=== PATIENT | male | born 1990 | race Caucasian/White ===

== ENCOUNTER 2023-05-04 00:32 | Emergency (ER) | payer BC, SELFPAY ==
[2023-05-04 00:38] VITALS: BP 141/84; PULSE 106; RESP 18; TEMP 36.8; O2SAT 100; BMI 27.6
--- NOTE | 2023-05-04 01:02 | XR_ITS ---
The [address] [address] Patient Name: SARAH HINDS MRN: [id number] date: 1990 Sex: M Assigned Patient Location: ER Current Patient Location: Accession/Order Number: [id number] Exam Date: 05/04/2023 01:25 Report Date: 05/04/2023 02:24 At the request of: JEANNE DAVEY Procedure: XR abdomen min 2V EXAM: XR abdomen min 2V HISTORY: right sided abdominal pain . Right lower quadrant pain for several days, worsening today. COMPARISON: None. TECHNIQUE: AP supine and upright abdominal x-rays. FINDINGS: The bowel gas pattern appears nonobstructive. No bowel wall thickening, pneumatosis or free air is seen. There is a normal volume of stool in the proximal half of the colon. No urinary tract calculi are seen. Cholecystectomy clips are noted. The imaged lung bases are clear. XR/XR abdomen min 2V IMPRESSION: No acute abdominal findings. Electronically authenticated by: SHEILA PRIEST Date: 05/04/2023 02:24
--- NOTE | 2023-05-04 01:03 | ED_ITS ---
HPI - Abdominal Pain General Chief Complaint: Abdominal Pain Stated Complaint: STOMACH PAIN Time Seen by Provider: 05/04/23 00:43 History of Present Illness HPI narrative: several days of right sided abdominal pain associated with chronic symptoms such as diarrhea and nausea. He has been able to keep down food and fluids but is eating and drinking less. He has dry heaves . No urinary symptoms. No flank pain. He has Lupus which means that I have pain all f the time . He said that the chronic diarrhea and right sided abdominal pain is associated with the lupus. Related Data Home Medications Medication Instructions Recorded Confirmed No Known Home Medications 05/04/23 05/04/23 Previous Rx's Medication Instructions Recorded hyoscyamine sulfate 0.125 mg 0.125 mg PO Q6H PRN abdominal pain 05/04/23 sublingual tablet (Levsin/SL) #20 tabs ondansetron 4 mg disintegrating 4 mg PO Q6H PRN nausea and 05/04/23 tablet vomiting #20 tabs Allergies Allergy/AdvReac Type Severity Reaction Status Date / Time amoxicillin Allergy Severe Verified 05/04/23 00:42 codeine Allergy Severe Verified 05/04/23 00:42 morphine Allergy Severe Verified 05/04/23 00:42 Penicillins Allergy Severe Verified 05/04/23 00:42 latex Allergy Verified 05/04/23 00:42 PFSH PFSH Social History Smoking status: Never smoker Exam Narrative Exam Narrative: Nurses notes and vital signs reviewed and patient is not hypoxic. afebrile General: Well-appearing and in no apparent distress. Skin: Warm, dry, no pallor noted. No rash to the abdomen. Head: Normocephalic, atraumatic. Eye: Pupils are equal, round and EOMI. No scleral icterus. Ears, Nose, Mouth, and Throat: Oral mucosa is dry Cardiovascular: Tachycardia. Respiratory: No accessory muscle use or respiratory distress. Lungs are clear to auscultation, no wheezing, rales or rhonchi Back: No CVA tenderness Musculoskeletal: normal ROM, no calf or popliteal tenderness, no lower ext remity edema/swelling GI: Abdomen is soft, non-distended. Normal bowel sounds. No masses appreciated. Suprapubic and mid right abdominal tenderness to palpation. Negative Rovsing's. No rebound, guarding, or rigidity noted. Neurological: A&O x4. No cranial nerve dysfunction observed. No truncal ataxia. Moves all extremities. Sensation intact. Psychiatric: Cooperative and interactive. Normal mood and affect. Constitutional Vital Signs, click to edit/add: Last Vital Signs Temp 98.3 F 05/04/23 00:38 Pulse 106 H 05/04/23 00:38 Resp 18 05/04/23 00:38 BP 141/84 05/04/23 00:38 Pulse Ox 100 05/04/23 00:38 O2 Del Method Room Air 05/04/23 00:38 Course Vital Signs Vital signs: Vital Signs Temperature 98.3 F 05/04/23 00:38 Pulse Rate 106 H 05/04/23 00:38 Respiratory Rate 18 05/04/23 00:38 Blood Pressure 141/84 05/04/23 00:38 Pulse Oximetry 100 05/04/23 00:38 Oxygen Delivery Method Room Air 05/04/23 00:38 Temperature 98.3 F 05/04/23 00:38 Pulse Rate 106 H 05/04/23 00:38 Respiratory Rate 18 05/04/23 00:38 Blood Pressure 141/84 05/04/23 00:38 Pulse Oximetry 100 05/04/23 00:38 Oxygen Delivery Method Room Air 05/04/23 00:38 MDM - Abdominal Pain MDM Narrative Medical decision making narrative: peripheral IV established and blood drawn and sent for testing. Patient also was sent for x-rays of the abdomen. Nonspecific bowel gas pattern was noted on x-rays. No obstruction. CBC normal. CMP Patient received normal saline IV fluid, IV Toradol and IV Zofran along with IV Phenergan. He felt better after ED treatment and was discharged home with prescription for Zofran and Levsin. Lab Data Attestation: I reviewed the patient's lab results. Labs: Lab Results 05/04/23 Range/Units 00:50 WBC 10.3 (4.0-11.0) 10^3/uL RBC 5.25 (4.70-6.10) 10^6/uL Hgb 15.3 (14.0-18.0) g/dL Hct 45.3 (42.0-54.0) % MCV 86.3 (80.0-94.0) fL MCH 29.1 (25.9-34.0) pg MCHC 33.8 (29.9-35.2) g/dL RDW 12.4 (11.0-15.0) % Plt Count 286 (150-450) 10^3/uL MPV 10.2 (9.5-13.5) fL Neut % (Auto) 51.0 (43.0-75.0) % Lymph % (Auto) 36.0 (20.5-60.0) % [place] % (Auto) 9.6 (1.7-12.0) % Eos % (Auto) 2.3 (0.9-7.0) % Baso % (Auto) 0.7 (0.2-2.0) % Neut # (Auto) 5.3 (1.4-6.5) 10^3/uL Lymph # (Auto) 3.7 (1.2-3.8) 10^3/uL [place] # (Auto) 1.0 H (0.3-0.8) 10^3/uL Eos # (Auto) 0.2 (0.0-0.7) 10^3/uL Baso # (Auto) 0.1 (0.0-0.1) 10^3/uL Abs Immat Gran (auto) 0.04 H (0.00-0.03) 10^3/uL Imm/Tot Granulo (auto) 0.4 (0.0-0.5) % Sodium 142 (136-145) mmol/L Potassium 3.4 L (3.5-5.1) mmol/L Chloride 102 (98-107) mmol/L Carbon Dioxide 28.8 (21.0-32.0) mmol/L Anion Gap 14.6 BUN 10.0 (7.0-18.0) mg/dL Creatinine 1.08 (0.70-1.30) mg/dL Est GFR ( Amer) >60 (>=60) Est GFR (Non-Af Amer) >60 (>=60) BUN/Creatinine Ratio 9.3 Glucose 99 (74-106) mg/dL Calcium 8.5 (8.5-10.1) mg/dL Total Bilirubin 0.6 (0.2-1.0) mg/dL AST 22 (15-37) U/L ALT 47 (16-63) U/L Alkaline Phosphatase 100 (46-116) U/L Total Protein 7.5 (6.4-8.2) g/dL Albumin 3.9 (3.4-5.0) g/dL Globulin 3.6 g/dL Albumin/Globulin Ratio 1.1 Lipase 115.0 (73.0-393.0) U/L Imaging Data Abdominal x-ray: Radiologist's impression: Patient Name: SARAH HINDS MRN: [id number] date: 1990 Sex: M Assigned Patient Location: ER Current Patient Location: Accession/Order Number: [id number] Exam Date: 05/04/2023 01:25 Report Date: 05/04/2023 02:24 At the request of: JEANNE DAVEY Procedure: XR abdomen min 2V EXAM: XR abdomen min 2V HISTORY: right sided abdominal pain . Right lower quadrant pain for several days, worsening today. COMPARISON: None. TECHNIQUE: AP supine and upright abdominal x-rays. FINDINGS: The bowel gas pattern appears nonobstructive. No bowel wall thickening, pneumatosis or free air is seen. There is a normal volume of stool in the proximal half of the colon. No urinary tract calculi are seen. Cholecystectomy clips are noted. The imaged lung bases are clear. IMPRESSION: No acute abdominal findings. Electronically authenticated by: SHEILA PRIEST Date: 05/04/2023 02:24 Discharge Plan Discharge Chief Complaint: Abdominal Pain Clinical Impression: Enteritis, Abdominal pain Patient Disposition: Home, Self-Care Time of Disposition Decision: 01:49 Prescriptions / Home Meds: New ondansetron 4 mg tablet,disintegrating 4 mg PO Q6H PRN (Reason: nausea and vomiting) Qty: 20 0RF hyoscyamine sulfate [Levsin/SL] 0.125 mg tablet, sublingual 0.125 mg PO Q6H PRN (Reason: abdominal pain) Qty: 20 0RF No Action No Known Home Medications Instructions: Abdominal Pain (ED), Enteritis (ED) Stand Alone Forms: Portal Instructions Referrals: AARON CHRISTOPHER [Primary Care Provider] - 1 week Discharge Date/Time: 05/04/23 01:58
[2023-05-04] MEDS: PROMETHAZINE HCL 25 MG/ML VIAL IV (01:13)
[2023-05-04] MEDS: KETOROLAC TROMETHAMINE 30 MG/ML VIAL IVP (01:13)
[2023-05-04] MEDS: 0.9 % SODIUM CHLORIDE 1,000 ML 999 ML IV (01:13)
[2023-05-04 01:24] LABS: Basophils Absolute Auto 0.1 10^3/uL (0.0-0.1); Basophils Percent Auto 0.7 % (0.2-2.0); Eosinophils Absolute Auto 0.2 10^3/uL (0.0-0.7); Eosinophils Percent Auto 2.3 % (0.9-7.0); Hematocrit 45.3 % (42.0-54.0); Hemoglobin 15.3 g/dL (14.0-18.0); Immature Granulocytes Abs Auto 0.04 10^3/uL (0.00-0.03); Immature Granulocytes Pct Auto 0.4 % (0.0-0.5); Lymphocytes Absolute Auto 3.7 10^3/uL (1.2-3.8); Mean Corpuscular HGB Conc 33.8 g/dL (29.9-35.2); Mean Corpuscular Hemoglobin 29.1 pg (25.9-34.0); Mean Corpuscular Volume 86.3 fL (80.0-94.0); Mean Platelet Volume 10.2 fL (9.5-13.5); Monocytes Percent Auto 9.6 % (1.7-12.0); Neutrophils Absolute Auto 5.3 10^3/uL (1.4-6.5); Platelet Count 286 10^3/uL (150-450); Red Blood Count 5.25 10^6/uL (4.70-6.10); Red Cell Distribution Width 12.4 % (11.0-15.0); White Blood Count 10.3 10^3/uL (4.0-11.0)
[2023-05-04] MEDS: ONDANSETRON PF 4 MG/2 ML VIAL IV (01:37)
[2023-05-04 01:46] LABS: Alanine Aminotransferase 47 U/L (16-63); Albumin Globulin Ratio 1.1; Albumin Level 3.9 g/dL (3.4-5.0); Alkaline Phosphatase 100 U/L (46-116); Anion Gap 14.6; Aspartate Amino Transferase 22 U/L (15-37); BUN Creatinine Ratio 9.3; Bilirubin Total 0.6 mg/dL (0.2-1.0); Calcium 8.5 mg/dL (8.5-10.1); Carbon Dioxide 28.8 mmol/L (21.0-32.0); Chloride 102 mmol/L (98-107); Estimated GFR (African America >60 (>=60); Estimated GFR (Non-African Ame >60 (>=60); Globulin 3.6 g/dL; Glucose 99 mg/dL (74-106); Potassium 3.4 mmol/L (3.5-5.1); Sodium 142 mmol/L (136-145); Total Protein 7.5 g/dL (6.4-8.2)
== END 2023-05-04 01:58 | disposition home or self-care (01) ==
PROVIDERS: Emergency Provider Emergency Medicine; PCP Family Medicine
DX: K52.9 Noninfective gastroenteritis and colitis, unspecified (principal); R10.9 Unspecified abdominal pain
CPT/HCPCS: 36415; 74019; 80053; 83690; 85025; 96374; 96375; 99284

== ENCOUNTER 2024-04-23 10:38 | Emergency (ER) | payer BC, SELFPAY ==
[2024-04-23 10:45] VITALS: BP 133/91; PULSE 101; TEMP 36.7; O2SAT 95; BMI 31.3
--- NOTE | 2024-04-23 10:55 | ECG_ITS ---
The [facility] Test Date: 2024-04-23 Pat Name: SARAH HINDS Department: Room: - Gender: Male Brand Director: : 1990 Requested By: Fredrick eMi Order Number: [id number] Reading MD: YURI HINDS Measurements Intervals [place] Rate: 86 P: 27 MS: 164 QRS: 22 QRSD: 80 T: 14 QT: 336 QTc: 379 Interpretive Statements 1100 Sinus rhythm 9110 normal ECG Compared to ECG 04/01/2021 11:27:10 No significant changes Electronically Signed On 04-23-2024 19:13:26 EDT by YURI HINDS
--- NOTE | 2024-04-23 10:55 | CT_ITS ---
The [address] [address] Patient Name: SARAH HINDS MRN: [id number] date: 1990 Sex: M Assigned Patient Location: ER Current Patient Location: ER Accession/Order Number: [id number] Exam Date: 04/23/2024 11:18 Report Date: 04/23/2024 12:37 At the request of: BRIDGET CASTRO Procedure: CT abdomen pelvis wo con EXAMINATION: CT abdomen pelvis wo con HISTORY: right flank pain COMPARISON: No relevant comparison available. TECHNIQUE: Axial, Coronal, and Sagittal images were created without IV contrast. Dose reduction techniques were achieved by using automated exposure control and/or adjustment of mA and/or kV according to patient size and/or use of iterative reconstruction technique. FINDINGS: LUNG BASES: No visible pulmonary or pleural disease. LIVER: No enlargement, atrophy, abnormal density, or significant focal lesion. BILIARY: Surgical clips from cholecystectomy PANCREAS: No lesion, fluid collection, ductal dilatation, or atrophy. SPLEEN: No enlargement or focal lesion. ADRENALS: No mass or enlargement. KIDNEYS: No mass, obstruction, or calcification. BOWEL/MESENTERY: No visible mass, obstruction, or bowel wall thickening. Normal appendix AORTA/VASCULAR: No aneurysm or dissection. RETROPERITONEUM: No mass or adenopathy. LYMPH NODES: No adenopathy. URINARY BLADDER: No visible focal wall thickening, lesion, or calculus. PELVIC ORGANS: No visible mass. Pelvic organs appropriate for patient age. ABDOMINAL WALL: No mass or hernia. BONES: No bony lesion or fracture. OTHER: Negative. CT/CT abdomen pelvis wo con IMPRESSION: No obstructive uropathy Electronically authenticated by: CHRISTIAN ELAINE Date: 04/23/2024 12:37
--- NOTE | 2024-04-23 10:56 | ED_ITS ---
HPI - Abdominal Pain General Chief Complaint: Abdominal Pain Stated Complaint: TORSO AND BACK PAIN Time Seen by Provider: 04/23/24 10:54 Source: patient Mode of arrival: walk-in Limitations: no limitations History of Present Illness HPI narrative: The patient is a 33-year-old male is coming to us with a right-sided upper abdominal pain associated with the radiation to the back for the last 7 days almost, mentioned that the pain comes and goes there is no specific reason that we will bring the patient pain. It is associated with nausea no vomiting No fever no chills no change in bowel movement, Related Data Previous Rx's ?Medication ?Instructions ?Recorded hyoscyamine sulfate 0.125 mg 0.125 mg PO Q6H PRN abdominal pain 05/04/23 sublingual tablet (Levsin/SL) #20 tabs ondansetron 4 mg disintegrating 4 mg PO Q6H PRN nausea and 05/04/23 tablet vomiting #20 tabs dicyclomine 20 mg tablet 20 mg PO QID PRN abdominal pain 04/23/24 #10 tabs famotidine 20 mg tablet (Pepcid) 20 mg PO BID #20 tabs 04/23/24 Allergies Allergy/AdvReac Type Severity Reaction Status Date / Time amoxicillin Allergy Severe Anaphylaxis Verified 04/23/24 10:45 codeine Allergy Severe Anaphylaxis Verified 04/23/24 10:45 morphine Allergy Severe Anaphylaxis Verified 04/23/24 10:45 Penicillins Allergy Severe Anaphylaxis Verified 04/23/24 10:45 latex Allergy Hives Verified 04/23/24 10:45 Review of Systems ROS Status of ROS 10 or more systems reviewed and unremark able except as noted in history and below [facility] Social History Smoking status: Never smoker Exam Narrative Exam Narrative: Nurses notes and vital signs reviewed and patient is not hypoxic. General: Well-appearing and in no apparent distress. Skin: Warm, dry, no pallor noted. No rash. Head: Normocephalic, atraumatic. Neck: Supple, non-tender. Eye: Pupils are equal, round and EOMI. No scleral icterus. Ears, Nose, Mouth, and Throat: TM are clear, no nasal mucosal hypertrophy. Oral mucosa is moist, no posterior oropharynx erythema, uvula is mid-line Cardiovascular: Regular Rate and Rhythm without murmur, gallop or rub. Respiratory: No accessory muscle use or respiratory distress. Lungs are clear to auscultation, no wheezing, rales or rhonchi Chest Wall: no tenderness Back: No midline thoracic or lumbar vertebral tenderness. No CVA tenderness Musculoskeletal: normal ROM, no calf or popliteal tenderness, no lower e xtremity edema/swelling GI: Abdomen is soft, non-distended. Normal bowel sounds. No masses appreciated. No tenderness to palpation. No rebound, guarding, or rigidity noted. Neurological: A&O x4. No cranial nerve dysfunction observed. No truncal ataxia. Moves all extremities. Sensation intact. Psychiatric: Cooperative and interactive. Normal mood and affect. Constitutional Vital Signs, click to edit/add: Last Vital Signs Temp 98.1 F 04/23/24 10:45 Pulse 78 04/23/24 12:50 Resp 18 04/23/24 12:50 BP 128/88 04/23/24 12:50 Pulse Ox 100 04/23/24 12:50 O2 Del Method Room Air 04/23/24 10:45 Course Vital Signs Vital signs: Vital Signs Temperature 98.1 F 04/23/24 10:45 Pulse Rate 101 H 04/23/24 10:45 Respiratory Rate 14 04/23/24 10:45 Blood Pressure 133/91 04/23/24 10:45 Pulse Oximetry 95 04/23/24 10:45 Oxygen Delivery Method Room Air 04/23/24 10:45 Temperature 98.1 F 04/23/24 10:45 Pulse Rate 78 04/23/24 12:50 Respiratory Rate 18 04/23/24 12:50 Blood Pressure 128/88 04/23/24 12:50 Pulse Oximetry 100 04/23/24 12:50 Oxygen Delivery Method Room Air 04/23/24 10:45 MDM - Abdominal Pain MDM Narrative Medical decision making narrative: I could not elicit the pain on examination but the patient was pointing to the right upper abdomen: As well as right lower back CBC chemistry showed no acute pathology and the patient CAT scan without contrast showed no acute pathology as well the patient presentation is mostly secondary to gastritis He was treated with Pepcid referred to his primary care as outpatient The patient is to follow up with primary care physician in next 2-3 days or to return to the emergency department should any of the signs or symptoms worsen or new symptoms develop. The patient agrees with the following Diagnosis and Treatment plan and the patient will be discharged home. Lab Data Labs: Lab Results 04/23/24 04/23/24 Range/Units 10:47 11:54 WBC 8.4 (4.0-11.0) 10^3/uL RBC 5.25 (4.70-6.10) 10^6/uL Hgb 15.8 (14.0-18.0) g/dL Hct 45.1 (42.0-54.0) % MCV 85.9 (80.0-94.0) fL MCH 30.1 (25.9-34.0) pg MCHC 35.0 (29.9-35.2) g/dL RDW 12.2 (11.0-15.0) % Plt Count 288 (150-450) 10^3/uL MPV 9.9 (9.5-13.5) fL Neut % (Auto) 42.8 L (43.0-75.0) % Lymph % (Auto) 42.8 (20.5-60.0) % [place] % (Auto) 10.5 (1.7-12.0) % Eos % (Auto) 2.9 (0.9-7.0) % Baso % (Auto) 0.8 (0.2-2.0) % Neut # (Auto) 3.6 (1.4-6.5) 10^3/uL Lymph # (Auto) 3.6 (1.2-3.8) 10^3/uL [place] # (Auto) 0.9 H (0.3-0.8) 10^3/uL Eos # (Auto) 0.2 (0.0-0.7) 10^3/uL Baso # (Auto) 0.1 (0.0-0.1) 10^3/uL Abs Immat Gran (auto) 0.02 (0.00-0.03) 10^3/uL Imm/Tot Granulo (auto) 0.2 (0.0-0.5) % Sodium 138 (136-145) mmol/L Potassium 3.5 (3.5-5.1) mmol/L Chloride 99 (98-107) mmol/L Carbon Dioxide 29.2 (21.0-32.0) mmol/L Anion Gap 13.3 BUN 12.0 (7.0-18.0) mg/dL Creatinine 1.03 (0.70-1.30) mg/dL Est GFR ( Amer) >60 (>=60) Est GFR (Non-Af Amer) >60 (>=60) BUN/Creatinine Ratio 11.7 Glucose 92 (74-106) mg/dL Calcium 9.3 (8.5-10.1) mg/dL Total Bilirubin 0.8 (0.2-1.0) mg/dL AST 27 (15-37) U/L ALT 54 (16-63) U/L Alkaline Phosphatase 95 (46-116) U/L Troponin I High Sens <4.0 L (4.0-76.1) pg/mL Total Protein 7.6 (6.4-8.2) g/dL Albumin 3.9 (3.4-5.0) g/dL Globulin 3.7 g/dL Albumin/Globulin Ratio 1.1 Lipase 39.0 (16.0-77.0) U/L Urine Color Yellow (YELLOW) Urine Clarity Clear (CLEAR) Urine pH 6.0 (5.0-9.0) Ur Specific [place] >=1.030 A (1.005-1.025) Urine Protein Negative (NEG/TRACE) mg/dL Urine Glucose (UA) Negative (NEGATIVE) mg/dL Urine Ketones Negative (NEGATIVE) mg/dL Urine Occult Blood Negative (NEGATIVE) Urine Nitrite Negative (NEGATIVE) Urine Bilirubin Negative (NEGATIVE) Urine Urobilinogen 0.2 (0.2-1.0) EU/dL Ur Leukocyte Esterase Negative (NEGATIVE) Discharge Plan Discharge Stand Alone Forms: Work/School Release, Portal Instructions Chief Complaint: Abdominal Pain Clinical Impression: Gastritis, Abdominal pain Patient Disposition: Home, Self-Care Time of Disposition Decision: 12:50 Condition: Good Prescriptions / Home Meds: New dicyclomine 20 mg tablet 20 mg PO QID PRN (Reason: abdominal pain) Qty: 10 0RF famotidine [Pepcid] 20 mg tablet 20 mg PO BID Qty: 20 0RF No Action ondansetron 4 mg tablet,disintegrating 4 mg PO Q6H PRN (Reason: nausea and vomiting) Qty: 20 0RF hyoscyamine sulfate [Levsin/SL] 0.125 mg tablet, sublingual 0.125 mg PO Q6H PRN (Reason: abdominal pain) Qty: 20 0RF Print Language: [place] Instructions: Soft Diet (ED), Abdominal Pain (ED) Referrals: AARON CHRISTOPHER [Primary Care Provider] - 1 week Discharge Date/Time: 04/23/24 12:59
[2024-04-23 11:06] LABS: Basophils Absolute Auto 0.1 10^3/uL (0.0-0.1); Basophils Percent Auto 0.8 % (0.2-2.0); Eosinophils Absolute Auto 0.2 10^3/uL (0.0-0.7); Eosinophils Percent Auto 2.9 % (0.9-7.0); Hematocrit 45.1 % (42.0-54.0); Hemoglobin 15.8 g/dL (14.0-18.0); Immature Granulocytes Abs Auto 0.02 10^3/uL (0.00-0.03); Immature Granulocytes Pct Auto 0.2 % (0.0-0.5); Lymphocytes Absolute Auto 3.6 10^3/uL (1.2-3.8); Lymphocytes Percent Auto 42.8 % (20.5-60.0); Mean Corpuscular Hemoglobin 30.1 pg (25.9-34.0); Mean Corpuscular Volume 85.9 fL (80.0-94.0); Mean Platelet Volume 9.9 fL (9.5-13.5); Monocytes Absolute Auto 0.9 10^3/uL (0.3-0.8); Monocytes Percent Auto 10.5 % (1.7-12.0); Neutrophils Absolute Auto 3.6 10^3/uL (1.4-6.5); Neutrophils Percent Auto 42.8 % (43.0-75.0); Platelet Count 288 10^3/uL (150-450); Red Blood Count 5.25 10^6/uL (4.70-6.10); Red Cell Distribution Width 12.2 % (11.0-15.0); White Blood Count 8.4 10^3/uL (4.0-11.0)
[2024-04-23] MEDS: 0.9 % SODIUM CHLORIDE 1,000 ML 1000 ML IV (11:07)
[2024-04-23] MEDS: FAMOTIDINE/PF 20 MG/2 ML VIAL IV (11:08)
[2024-04-23] MEDS: KETOROLAC TROMETHAMINE 30 MG/ML VIAL 15 MG IVP (11:09)
[2024-04-23] MEDS: ONDANSETRON PF 4 MG/2 ML VIAL IV (11:10)
[2024-04-23 11:21] LABS: Alanine Aminotransferase 54 U/L (16-63); Albumin Globulin Ratio 1.1; Albumin Level 3.9 g/dL (3.4-5.0); Alkaline Phosphatase 95 U/L (46-116); Anion Gap 13.3; Aspartate Amino Transferase 27 U/L (15-37); BUN Creatinine Ratio 11.7; Bilirubin Total 0.8 mg/dL (0.2-1.0); Calcium 9.3 mg/dL (8.5-10.1); Carbon Dioxide 29.2 mmol/L (21.0-32.0); Chloride 99 mmol/L (98-107); Estimated GFR (African America >60 (>=60); Estimated GFR (Non-African Ame >60 (>=60); Globulin 3.7 g/dL; Glucose 92 mg/dL (74-106); Potassium 3.5 mmol/L (3.5-5.1); Sodium 138 mmol/L (136-145); Total Protein 7.6 g/dL (6.4-8.2); Troponin I High Sensitivity <4.0 pg/mL (4.0-76.1)
[2024-04-23 11:33] VITALS: BP 126/82; PULSE 81; O2SAT 98
[2024-04-23 12:13] LABS: Bilirubin Urine NEGATIVE (NEGATIVE); Blood Urine NEGATIVE (NEGATIVE); Clarity Urine CLEAR (CLEAR); Color Urine YELLOW (YELLOW); Glucose Urine UA NEGATIVE (NEGATIVE); Ketones Urine NEGATIVE (NEGATIVE); Leukocyte Esterase Urine NEGATIVE (NEGATIVE); Nitrite Urine NEGATIVE (NEGATIVE); Protein Urine NEGATIVE (NEG/TRACE); Specific Gravity Urine >=1.030 (1.005-1.025); Urobilinogen Urine 0.2 EU/dL (0.2-1.0)
[2024-04-23 12:15] LABS: Urine Microscopic Indicated NO
[2024-04-23 12:50] VITALS: BP 128/88; PULSE 78; O2SAT 100
== END 2024-04-23 12:59 | disposition home or self-care (01) ==
PROVIDERS: Emergency Provider Emergency Medicine; PCP Family Medicine
DX: K29.70 Gastritis, unspecified, without bleeding (principal); R10.11 Right upper quadrant pain; Z90.49 Acquired absence of other specified parts of digestive tract
CPT/HCPCS: 36415; 74176; 80053; 81003; 83690; 84484; 85025; 93005; 96374; 96375; 99285; J1885; J2405

== ENCOUNTER 2024-08-28 16:42 | Emergency (ER) | payer BC, SELFPAY ==
[2024-08-28] VITALS (22 sets, daily range): BP systolic 121–142; BP diastolic 80–102; PULSE 109–135; TEMP 36.4; O2SAT 97–100; BMI 29.7
--- NOTE | 2024-08-28 16:46 | ECG_ITS ---
The [facility] Test Date: 2024-08-28 Pat Name: SARAH HINDS Department: Room: - Gender: Male Parts Representative: : 1990 Requested By: Fredrick Mei Order Number: [id number] Reading MD: YURI HINDS Measurements Intervals [place] Rate: 126 P: 49 ID: [id number] QRS: 36 QRSD: 88 T: 40 QT: 322 QTc: 397 Interpretive Statements 1120 Sinus tachycardia 9140 abnormal rhythm ECG Compared to ECG 04/23/2024 11:06:22 Sinus rhythm no longer present Electronically Signed On 08-31-2024 20:17:53 EST by YURI HINDS
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
--- OUTSIDE RECORDS SUMMARY | 2024-08-28 17:00 | XMS_ITS | CCD ---
Author Organization [facility] CliniSyvt Care Team Providers Care Packager And Strapper Name Role Phone AARON CHRISTOPHER Primary Care Unavailable MARKER, DR VILLATORO Admitting Unavailable MARKER, DR VILLATORO Attending Unavailable MARKER, DR VILLATORO Consulting Unavailable PETZNICK, AARON Primary Care Unavailable ROXANNE, ZARI Admitting Unavailable ROXNANE, ZARI Attending Unavailable ZIEBER, DR ASUNCION White Consulting Unavailable ROXANNE, ZARI Consulting Unavailable PETZNICK, AARON Primary Care Unavailable ROXANNE, ZARI Admitting Unavailable ROXANNE, ZARI Attending Unavailable ROXANNE, ZARI Consulting Unavailable MICHAEL VILLAFUERTE Consulting Unavailable PETZNICK, [facility] Primary Care Unavailable JONATHAN, MAURISIO Admitting Unavailable JONATHAN, MAURISIO Attending Unavailable JONATHAN, MAURISIO Consulting Unavailable HARVEY RAMEY Consulting Unavailable ROXANNE, ZARI Consulting Unavailable PETZNICK, AARON Primary Care Unavailable MARKER, DR VILLATORO Admitting Unavailable MARKER, DR VILLATORO Attending Unavailable MARKER, DR VILLATORO Consulting Unavailable LIZZ NORRIS Consulting Unavailable PETZNICK, AARON Primary Care Unavailable ROXANNE, ZARI Admitting Unavailable ROXANNE, ZARI Attending Unavailable KEITH VILLALOBOS Consulting Unavailable Petznick Aaron VANEGAS Unavailable [phone] PetznAaron huffman DO Primary Care Provider AARON CHRISTOPHER C Attending Unavailable PETZNICK, AARON C Referring Unavailable PETZNICK, AARON Caraballo Attending Unavailable PETZNICK, AARON C Referring Unavailable PETZNICK, AARON C Referring Unavailable PETZNICK, AARON Caraballo Attending Unavailable PETZNICKAARON Referring Unavailable Allergies Allergy Classification Reported Allergen(s) Allergy Type Date of Onset Reaction(s) Facility (1 source) Amoxicillin Drug Allergy [facility]ository (1 source) bee venom Drug allergy (disorder) 04-04-[address] [facility] (1 source) Codeine Drug Allergy [facility] (1 source) Iodine Drug Allergy 04-04-[address] [facility] (1 source) Latex Drug allergy (disorder) [facility] (1 source) Meperidine Drug Allergy [facility] (1 source) Morphine Drug Allergy [facility] (1 source) Penicillins Drug allergy (disorder) [facility] (3 sources) Codeine Drug Allergy 04-04-2021 Unknown [facility] (3 sources) Morphine Drug Allergy 04-04-2021 Anaphylaxis [facility] (3 sources) Penicillin G Drug Allergy 04-04-2021 Anaphylaxis [facility] Medications Current Medications Medication Drug Class(es) Dates Sig (Normalized) Sig (Original) azithromycin 250 mg oral tablet (2 sources) Macrolide Antimicrobial Start: 08-03-2024 End: 08-07-2024 take 2 tablets by mouth once daily, then take 1 tablet by mouth once daily azithromycin (Zithromax) 250 MG tablet Indications: Dysfunction of left eustachian tube Take 2 tablets (500 mg) by mouth Daily for 1 day, THEN 1 tablet (250 mg) Daily for 4 days. 6 tablet 08/03/2024 08/07/2024 Active famotidine 20 mg oral tablet (2 sources) Histamine-2 Receptor Antagonist Start: 04-23-2024 take 1 tablet by mouth in the morning famotidine (Pepcid) 20 MG tablet Take 20 mg by mouth in the morning and 20 mg before bedtime. 04/23/2024 Active fluticasone propionate 0.05 mg/actuat metered dose nasal spray (2 sources) Corticosteroid Start: 08-03-2024 End: 08-03-2025 take 2 spray(s) nasal route once daily fluticasone (Flonase) 50 MCG/ACT nasal spray Indications: Dysfunction of left eustachian tube Administer 2 sprays into each nostril Daily Shake gently. Before first use, prime pump. After use, clean tip and replace cap. 16 g 2 08/03/2024 08/03/2025 Active ondansetron 4 mg disintegrating oral tablet (3 sources) Serotonin-3 Receptor Antagonist Start: 11-07-2023 take 1 tablet by mouth every six hours as needed for nausea and vomiting ondansetron ODT (Zofran-ODT) 4 MG disintegrating tablet Indications: Irritable bowel syndrome with diarrhea DISSOLVE 1 TABLET ORALLY EVERY 6 HOURS NEEDED FOR NAUSEA AND VOMITING 20 tablet 3 11/07/2023 Active predniSONE 20 mg oral tablet (2 sources) Start: 08-03-2024 End: 08-12-2024 take 2 tablets by mouth once daily, then take 1 tablet by mouth once daily, then take 0.5 tablet by mouth once daily predniSONE (Deltasone) 20 MG tablet Indications: Dysfunction of left eustachian tube Take 2 tablets (40 mg) by mouth Daily for 3 days, THEN 1 tablet (20 mg) Daily for 3 days, THEN 0.5 tablets (10 mg) Daily for 4 days. 11 tablet 08/03/2024 08/12/2024 Active tiZANidine 2 mg oral tablet (3 sources) Central alpha-2 Adrenergic Agonist Start: 12-03-2023 take 1 tablet by mouth at bedtime tiZANidine (Zanaflex) 2 MG tablet Indications: Spasm TAKE 1 TABLET BY MOUTH AT BEDTIME 90 tablet 1 12/03/2023 Active Completed/Discontinued Medications Medication Drug Class(es) Dates Sig (Normalized) Sig (Original) dexamethasone 6 mg oral tablet (3 sources) Corticosteroid Start: 12-31-2023 End: 08-03-2024 take 1 tablet by mouth once daily dexAMETHasone (Decadron) 6 MG tablet Indications: Costochondritis Take 1 tablet (6 mg) by mouth Daily for 7 days 7 tablet 12/31/2023 08/03/2024 Discontinued (Therapy completed) hyoscyamine sulfate 0.125 mg sublingual tablet (3 sources) Start: 05-04-2023 End: 08-03-2024 hyoscyamine (Levsin) 0.125 MG SL tablet DISSOLVE 1 TABLET UNDER THE TONGUE EVERY 6 HOURS NEEDED FOR ABDOMINAL PAIN 05/04/2023 08/03/2024 Discontinued (Therapy completed) Problems Active Problems Problem Classification Problem Date Documented Da te Episodic/Chronic Anxiety disorders (4 sources) Anxiety disorder, unspecified; Translations: [Anxiety] Onset: 9 01-29-2023 Chronic Disorders of teeth and jaw (4 sources) Other specified disorders of teeth and supporting structures; Translations: [OTH SPEC DISORDERS TEETH SUPP STRCT] Onset: 2 Episodic Esophageal disorders (3 sources) Gastroesophageal reflux disease; Translations: [Gastro-esophageal reflux disease without esophagitis] Onset: 8 01-29-2023 Chronic Headache; including migraine (2 sources) Migraine; Translations: [Other migraine, not intractable, without status migrainosus] 08-05-2024 Chronic Headache; including migraine (4 sources) Headache; including migraine; Translations: [HEADACHE UNSPECIFIED] Onset: 1 Mood disorders (1 source) Bipolar disorder, unspecified; Translations: [BIPOLAR DISORDER UNSPECIFIED] Onset: 1 Chronic Other aftercare (1 source) Other jail (current) drug therapy; Translations: [OTH SKILLED NURSING CURRENT DRUG THERAPY] Onset: 2 Episodic Other gastrointestinal disorders (3 sources) Irritable bowel syndrome with diarrhea; Translations: [Irritable bowel syndrome with diarrhea] Onset: 9 01-29-2023 Chronic Other nervous system disorders (3 sources) Chronic pain; Translations: [Other chronic pain] Onset: 9 01-29-2023 Chronic Other nutritional; endocrine; and metabolic disorders (2 sources) Body mass index 30+ - obesity; Translations: [Obesity, unspecified] 08-03-2024 Chronic Other skin disorders (1 source) Localized swelling, mass and lump, head; Translations: [LOCALIZED SWELLING MASS AND LUMP HEAD] Onset: 2 Episodic Otitis media and related conditions (2 sources) Dysfunction of left eustachian tube; Translations: [Unspecified Eustachian tube disorder, left ear] 08-03-2024 Episodic Substance-related disorders (1 source) Nicotine dependence, cigarettes, uncomplicated; Translations: [NICOTINE DEPEND CIGARETTES UNCOMP] Onset: 1 Chronic Past or Other Problems Problem Classification Problem Date Documented Da te Episodic/Chronic Blindness and vision defects (4 sources) Other visual disturbances; Translations: [OTHER VISUAL DISTURBANCES] Onset: 04-01-2021 Episodic Nausea and vomiting (3 sources) Vomiting, unspecified; Translations: [VOMITING UNSPECIFIED] Onset: 05-21-2021 Episodic Other circulatory disease (4 sources) Other specified symptoms and signs involving the circulatory and respiratory systems; Translations: [OTH SPEC SX SIGNS INVLV CIRC RS] Onset: 06-08-2021 Episodic Other diseases of kidney and ureters (1 source) Disorder of kidney and ureter, unspecified; Translations: [DISORDER KIDNEY AND URETER UNS] Onset: 05-23-2021 Episodic Other gastrointestinal disorders (3 sources) Slow transit constipation; Translations: [Slow transit constipation] Onset: 11-26-2017 01-29-2023 Episodic Other injuries and conditions due to external causes (1 source) Other foreign object in respiratory tract, part unspecified causing other injury, initial encounter; Translations: [OTH OBJ RESP TRACT UNS OTH INJ INIT] Onset: 05-23-2021 Episodic Other injuries and conditions due to external causes (5 sources) Foreign body of alimentary tract, part unspecified, initial encounter; Translations: [FB ALIMENTARY TRACT PART UNS INIT] Onset: 05-20-2021 Episodic Poisoning by nonmedicinal substances (3 sources) Allergic reaction to bee sting; Translations: [Toxic effect of venom of bees, accidental (unintentional), initial encounter] Onset: 03-27-2017 01-29-2023 Episodic Residual codes; unclassified (1 source) Acquired absence of other specified parts of digestive tract; Translations: [ACQ ABSENCE OTH PART DIGESTV TRACT] Onset: 06-12-2021 Episodic Screening and history of mental health and substance abuse codes (1 source) Personal history of nicotine dependence; Translations: [PERSONAL HISTORY OF NICOTINE DEPEND] Onset: 04-06-2021 Episodic Spondylosis; intervertebral disc disorders; other back problems (1 source) Occipital neuralgia; Translations: [OCCIPITAL NEURALGIA] Onset: 07-12-2021 Episodic Results Test Name Value Interpretation Reference Range Facility XR CHEST 2 VIEWSon XR CHEST 2 VIEWS FINDINGS: Comparison is made with prior examination of November 25, 2019. No change is seen. No acute cardiac or pulmonary disease is identified. No worrisome mass lesions or infiltrates are seen. No pulmonary edema or pneumothorax is present. Cardiac silhouette size is normal. Mild thoracolumbar scoliosis also is present. IMPRESSION: 1. No acute cardiac or pulmonary disease 2. Mild thoracolumbar scoliosis TRANSCRIBED BY: ELECTRONICALLY SIGNED BY: Flaquito Mary MD Normal Not Available XR CHEST 2 Von 06-08-2021 XR CHEST 2 V EXAM: XR CHEST 2 V HISTORY: COUGH COMPARISON: Chest radiograph dated 05/20/2021. TECHNIQUE: 2 views of the chest were obtained. FINDINGS: The cardiac silhouette is normal in size. The lungs are clear. There is no significant pneumothorax or pleural effusion. No acute osseous abnormality is seen. No definite radiopaque foreign body is seen. Cholecystectomy clips are noted on the lateral view. IMPRESSION: 1. No acute cardiopulmonary abnormality. Electronically authenticated by: Bala NORRIS Date: 2021-06-08 03:[address] [facility] XR NECK SOFT TISSUEon 2020 XR NECK SOFT TISSUE EXAM: XR NECK SOFT TISSUE HISTORY: COUGH COMPARISON: None. TECHNIQUE: 2 views of the soft tissues of the neck were obtained. FINDINGS: The epiglottis appears within normal limits. The prevertebral soft tissues are unremarkable. No acute osseous abnormality is seen. Dental hardware is seen. The airway is patent. The imaged lung apices are clear. No definite radiopaque foreign body is seen. IMPRESSION: 1. No definite radiopaque foreign body is seen. Electronically authenticated by: Bala NORRIS Date: 2021-06-08 03:[address] [facility] CBC AUTO DIFFon 05-21-2021 BASO # 0.1 103/ul Normal 0.0-0.[address] [facility] Comment on above: Performed By: #### C BC ####[facility] [address] [place] [address]Dr. Chris Ortiz Basophils/100 WBC (Bld) 0.8 % Normal 0.2-2.[address] [facility] Comment on above: Performed By: #### C BC ####[facility] [address] [place] [id number]. Chris Ortiz EO # 0.3 103/ul Normal 0.0-0.[address] [facility] Comment on above: Performed By: #### C BC ####[facility] [address] [place] [id number]. Justinakennedy Ortiz Eosinophils/100 WBC (Bld) 2.9 % Normal 0.9-7.[address] [facility] Comment on above: Performed By: #### C BC ####[facility] [address] [place] [id number]. Justinakennedy Ortiz Erythrocyte distribution width (RBC) [Ratio] 13.2 % Normal 11.0-15.[address] [facility] Comment on above: Performed By: #### C BC ####[facility] [address] [place] [address]Dr. Chris Ortiz Hematocrit (Bld) [Volume fraction] 43.3 % Normal 42.0-54.0 [facility] Comment on above: Performed By: #### C BC ####[facility] [address] [place] [address]Dr. Chris Angel Hemoglobin (Bld) [Mass/Vol] 14.4 g/dL Normal 14.0-18.0 [facility] Comment on above: Performed By: #### C BC ####[facility] [address] [place], [place] [address]Dr. Chris Angel IG # 0.02 10e3/ul Normal 0.00-0.03 [facility] Comment on above: Performed By: #### C BC ####[facility] [address] [place], [place] [address]Dr. Chris Ortiz IG % 0.2 % Normal 0.0-0.5 [facility] Comment on above: Performed By: #### C BC ####[facility] [address] [place], [place] [address]Dr. Chris Angel LYMPH # 3.1 103/ul Normal 1.2-3.[address] [facility] Comment on above: Performed By: #### C BC ####[facility] [address] [place], [place] [address]Dr. Justinakennedy Ortiz Lymphocytes/100 WBC (Bld) 31.6 % Normal 20.5-60.0 [facility] Comment on above: Performed By: #### C BC ####[facility] [address] [place], [place] [address]Dr. Justinakennedy Ortiz MANUAL DIFF REQ NO Normal [facility] Comment on above: Performed By: #### C BC ####[facility] [address] [place], [place] [address]Dr. Chris Ortiz MCH (RBC) [Entitic mass] 29.6 pg Normal 25.9-34.0 [facility] Comment on above: Performed By: #### C BC ####[facility] [address] [place] [id number]. Chris Angel MCHC (RBC) [Mass/Vol] 33.3 g/dL Normal 29.9-35.[address] [facility] Comment on above: Performed By: #### C BC ####[facility] [address] [place] [id number]. Justinakennedy Ortiz MCV (RBC) [Entitic vol] 88.9 fL Normal 80.0-94.[address] [facility] Comment on above: Performed By: #### C BC ####[facility] [address] [place] [id number]. Chris Ortiz MONO # 1.0 103/ul Critically high 0.3-0.8 [facility] Comment on above: Performed By: #### C BC ####[facility] [address] [place], [place] [address]Dr. Chris Ortiz Monocytes/100 WBC (Bld) 10.1 % Normal 1.7-12.[address] [facility] Comment on above: Performed By: #### C BC ####[facility] [address] [place], [place] [id number]. Chris Angel NEUT # 5.3 103/ul Normal 1.4-6.[address] [facility] Comment on above: Performed By: #### C BC ####[facility] [address] [place], [place] [address]Dr. Chris Ortiz Neutrophils/100 WBC (Bld) 54.4 % Normal 43.0-75.[address] [facility] Comment on above: Performed By: #### C BC ####[facility] [address] [place], [place] [id number]. Chris Ortiz Platelet mean volume (Bld) [Entitic vol] 10.5 fL Normal 9.5-13.[address] [facility] Comment on above: Performed By: #### C BC ####[facility] [address] [place], [place] [id number]. Chris Ortiz PLT 279 103/ul Normal 150-[address] [facility] Comment on above: Performed By: #### C BC ####[facility] [address] [place], [place] [address]WxNida Justinakennedy Ortiz RBC 4.87 106/ul Normal 4.70-6.10 [facility] Comment on above: Performed By: #### C BC ####[facility] [address] [place], [place] [address]JlNida Ortiz WBC 9.7 103/ul Normal 4.0-11.0 [facility] Comment on above: Performed By: #### C BC ####[facility] [address] [place], [place] [address]Dr. Chris Ortiz CT CHEST W CONon 05-21-2021 CT CHEST W CON EXAMINATION: CT CHEST W CON HISTORY: CHEST PAIN, UNSPECIFIED COMPARISON: None. TECHNIQUE: CT examination of the chest following the administration of intravenous contrast. Coronal and sagittal reformations were performed. Dose reduction techniques were achieved by using automated exposure control and/or adjustment of mA and/or kV according to patient size and/or use of iterative reconstruction technique. FINDINGS: No filling defects are noted within the pulmonary arteries to suggest the presence of an embolus. The lungs are well inflated and clear. There is no pleural effusion, consolidation or acute infiltrate. There is no evidence an interstitial lung disease. The major airway is patent. There is no axillary, hilar or mediastinal adenopathy. No enhancing mediastinal masses. Normal appearance of the heart without pericardial effusion. No filling defects in the four chambers. Normal appearance of the aorta and great vessels. The thyroid gland is unremarkable. There is no hiatal hernia. Liver is fatty in attenuation. The visualized portion of the upper abdomen otherwise demonstrates no acute or concerning abnormality. IMPRESSION: 1. No pulmonary embolus. 2. No acute findings. 3. Fatty liver. Electronically authenticated by: HARVEY RAMEY Date: 2021-05-21 01:[address] [facility] PROF CHEM 8 (BAS METB)on Anion gap [Moles/Vol] 8.6 mmol/L Normal [facility] Comment on above: Performed By: #### B MP #### [facility] [address] [place], [place] [address] Dr. Chris Ortiz Calcium [Mass/Vol] 9.4 mg/dL Normal 8.4-10.2 [facility] Comment on above: Performed By: #### B MP #### [facility] [address] [place] [address] Dr. Chris Ortiz Chloride [Moles/Vol] 104 mmol/L Normal 98-107 [facility] Comment on above: Performed By: #### B MP #### [facility] [address] [place] [address] [address] Chris Ortiz CO2 [Moles/Vol] 30.7 mmol/L Critically high 22.0-30.0 [facility] Comment on above: Performed By: #### B MP #### [facility] [address] [place] [address] Dr. Chris Ortiz Creatinine [Mass/Vol] 2.34 mg/dL Critically high 0.66-1.25 [facility] Comment on above: Performed By: #### B MP #### [facility] [address] [place] [address] Dr. Chris Ortiz EGFR-AF GRENADIAN 40 mL/min/1.73m2 Critically low >=60 [facility] Comment on above: Performed By: #### B MP #### [facility] [address] [place] [address] Dr. Chris Ortiz EGFR-NON AF GRENADIAN 33 mL/min/1.73m2 Critically low >=60 [facility] Comment on above: Performed By: #### B MP #### [facility] [address] [place] [address] Dr. Chris Ortiz Glucose [Mass/Vol] 88 mg/dL Normal 74-106 [facility] Comment on above: Performed By: #### B MP #### [facility] [address] [place] [address] [address] Chris Ortiz Potassium [Moles/Vol] 3.3 mmol/L Critically low 3.4-5.0 [facility] Comment on above: Performed By: #### B MP #### [facility] [address] [place] [address] [address] Chris Ortiz Sodium [Moles/Vol] 140 mmol/L Normal 137-145 [facility] Comment on above: Performed By: #### B MP #### [facility] [address] [place] [address] [address] Chris Ortiz Urea nitrogen [Mass/Vol] 11.0 mg/dL Normal 9.0-20.0 [facility] Comment on above: Performed By: #### B MP #### [facility] [address] [place] [address] [address] Chris Ortiz Urea nitrogen/Creatinine [Mass ratio] 4.7 mg/mg Normal [facility] Comment on above: Performed By: #### B MP #### [facility] [address] [place] [address] [address] Chris Ortiz XR CHEST 1 Von 05-20-2021 XR CHEST 1 V EXAM: XR CHEST 1 V HISTORY: The patient is a 30-year-old male. Evaluate for foreign body. COMPARISON: 04/01/2021. FINDINGS: The lungs are well-inflated and clear with no confluent airspace infiltrates, pleural effusions, or pneumothoraces. No radiopaque foreign bodies are seen. The heart and mediastinum are within normal limits. The trachea is midline. IMPRESSION: Negative. Electronically authenticated by: MICHAEL VILLAFUERTE Date: 2021-05-20 18:10 Normal [facility] XR NECK SOFT TISSUEon 2020 XR NECK SOFT TISSUE EXAM: XR NECK SOFT TISSUE HISTORY: The patient is a 30-year-old male. Evaluate for foreign body. COMPARISON: None. FINDINGS: The airway is patent. No radiopaque foreign bodies are seen. No retropharyngeal soft tissue swelling is seen. The epiglottis appears negative. IMPRESSION: Negative. Electronically authenticated by: MICHAEL VILLAFUERTE Date: 2021-05-20 18:09 Normal [facility] CBC AUTO DIFFon 04-01-2021 BASO # 0.1 103/ul Normal 0.0-0.1 [facility] Comment on above: Performed By: #### C BC #### [facility] [address] [place] [address] Amara Sharri Basophils/100 WBC (Bld) 0.8 % Normal 0.2-2.0 [facility] Comment on above: Performed By: #### C BC #### [facility] [address] [place], [place] [id number] Amara Sharri EO # 0.3 103/ul Normal 0.0-0.[address] [facility] Comment on above: Performed By: #### C BC #### [facility] [address] [place], [place] [id number] Amara Sharri Eosinophils/100 WBC (Bld) 3.8 % Normal 0.9-7.0 [facility] Comment on above: Performed By: #### C BC #### [facility] [address] [place] [address] Amara Sharri Erythrocyte distribution width (RBC) [Ratio] 12.7 % Normal 11.0-15.0 [facility] Comment on above: Performed By: #### C BC #### [facility] [address] [place] [address] Amara Sharri Hematocrit (Bld) [Volume fraction] 42.6 % Normal 42.0-54.0 [facility] Comment on above: Performed By: #### C BC #### [facility] [address] [place], [place] [id number] Amara Sharri Hemoglobin (Bld) [Mass/Vol] 14.4 g/dL Normal 14.0-18.0 [facility] Comment on above: Performed By: #### C BC #### [facility] [address] [place] [address] Amara Sharri IG # 0.02 10e3/ul Normal 0.00-0.[address] [facility] Comment on above: Performed By: #### C BC #### [facility] [address] [place] [address] Amara Sharri IG % 0.3 % Normal 0.0-0.[address] [facility] Comment on above: Performed By: #### C BC #### [facility] [address] [place], [place] [id number] Amara Sharri LYMPH # 2.7 103/ul Normal 1.2-3.[address] [facility] Comment on above: Performed By: #### C BC #### [facility] [address] [place], [place] [id number] Amara Sharri Lymphocytes/100 WBC (Bld) 37.5 % Normal 20.5-60.[address] [facility] Comment on above: Performed By: #### C BC #### [facility] [address] [place], [place] [id number] Amara Sharri MANUAL DIFF REQ NO Normal [facility] Comment on above: Performed By: #### C BC #### [facility] [address] [place], [place] [id number] Amara Sharri MCH (RBC) [Entitic mass] 29.6 pg Normal 25.9-34.[address] [facility] Comment on above: Performed By: #### C BC #### [facility] [address] [place] [address] Amara Sharri MCHC (RBC) [Mass/Vol] 33.8 g/dL Normal 29.9-35.[address] [facility] Comment on above: Performed By: #### C BC #### [facility] [facility] [address] [place], [place] [id number] Amara Sharri MCV (RBC) [Entitic vol] 87.7 fL Normal 80.0-94.[address] [facility] Comment on above: Performed By: #### C BC #### [facility] [address] [place], [place] [id number] Amara Sharri MONO # 0.8 103/ul Normal 0.3-0.[address] [facility] Comment on above: Performed By: #### C BC #### [facility] [address] [place], [place] [id number] Amara Sharri Monocytes/100 WBC (Bld) 10.7 % Normal 1.7-12.[address] [facility] Comment on above: Performed By: #### C BC #### [facility] [address] [place], [place] [id number] Amara Sharri NEUT # 3.4 103/ul Normal 1.4-6.[address] [facility] Comment on above: Performed By: #### C BC #### [facility] [address] [place], [place] [id number] Amara Sharri Neutrophils/100 WBC (Bld) 46.9 % Normal 43.0-75.[address] [facility] Comment on above: Performed By: #### C BC #### [facility] [address] [place], [place] [id number] Amara Harrell Platelet mean volume (Bld) [Entitic vol] 10.1 fL Normal 9.5-13.[address] [facility] Comment on above: Performed By: #### C BC #### [facility] [address] [place] [address] Amara Harrell PLT 266 103/ul Normal 150-[address] [facility] Comment on above: Performed By: #### C BC #### [facility] [address] [place] [address] Amara Harrell RBC 4.86 106/ul Normal 4.70-6.[address] [facility] Comment on above: Performed By: #### C BC #### [facility] [address] [place], [place] [id number] Amara Harrell WBC 7.2 103/ul Normal 4.0-11.[address] [facility] Comment on above: Performed By: #### C BC #### [facility] [address] [place], [place] [id number] Amara Harrell CT STROKE HEAD WOon 04-01-20 CT STROKE HEAD WO EXAMINATION: CT STROKE HEAD WO, 04/01/2021 11:24 AM EDT HISTORY: Visual disturbance COMPARISON: None. TECHNIQUE: CT scan of the head was performed without IV contrast. CT dose reduction technique was used, including Automated Exposure Control. FINDINGS: BRAIN: No edema, hemorrhage, mass, acute infarction, or inappropriate atrophy. CSF SPACES: No hydrocephalus, subarachnoid hemorrhage, or mass. Appropriate for age. SKULL: No fracture, mass, or other significant visible lesion. SINUSES: No significant mucosal thickening or fluid on the limited views. ORBITS: No appreciable abnormality on the limited views. OTHER: Negative IMPRESSION: 1. No intracranial hemorrhage or suspicious abnormality. 2. Chronic sinusitis. Findings provided to Jolanta in the emergency department to be relayed to Dr. Davis. Electronically authenticated by: ASUNCION VILLAREAL Date: 2021-04-01 12:[address] [facility] CTA NECK WO W CONon 04-01-20 21 CTA NECK WO W CON EXAMINATION: CTA HEAD WO W CON, CTA NECK WO W CON HISTORY: Visual disturbance COMPARISON: No relevant comparison available. TECHNIQUE: Axial, Coronal, and Sagittal CT images with IV contrast. Multi-planar/3-D imaging to optimize visualization of vascular anatomy. Percent stenosis is based on NASCET criteria. Dose reduction techniques were achieved by using automated exposure control and/or adjustment of mA and/or kV according to patient size and/or use of iterative reconstruction technique. FINDINGS: HEAD: VASCULATURE: Normal. No significant stenosis. No visible aneurysm or vascular malformation. VENTRICLES: Normal for age. No enlargement or displacement. CEREBRUM: Normal for age. No excessive atrophy, mass, or hemorrhage, or abnormal enhancement. CEREBELLUM: Normal for age. No excessive atrophy, mass, or hemorrhage, or abnormal enhancement. BRAINSTEM: Normal for age. No excessive atrophy, mass, or hemorrhage, or abnormal enhancement. BASAL CISTERNS: Normal. No subarachnoid hemorrhage or effacement. SKULL: Negative. NECK: RIGHT INTERNAL CAROTID: No hemodynamically significant stenosis or dissection. EXTERNAL CAROTID: No hemodynamically significant stenosis or dissection. COMMON CAROTID: No hemodynamically significant stenosis or dissection. VERTEBRAL: No hemodynamically significant stenosis or dissection. LEFT INTERNAL CAROTID: No hemodynamically significant stenosis or dissection. EXTERNAL CAROTID: No hemodynamically significant stenosis or dissection. COMMON CAROTID: No hemodynamically significant stenosis or dissection. VERTEBRAL: No hemodynamically significant stenosis or dissection. OTHER: The visualized soft tissues of the neck are also unremarkable. IMPRESSION: 1. Normal CT angiography of the head and neck. Electronically authenticated by: ASUNCION VILLAREAL Date: 2021-04-01 13:[address] [facility] PROF 14(COMP METB)on 021 Albumin [Mass/Vol] 4.3 g/dL Normal 3.5-5.0 [facility] Comment on above: Performed By: #### C ERICA SMALLWOODN ####[facility] [address] [place], [place] [address]Wpwbgg Sharri Albumin/Globulin [Mass ratio] 1.3 {ratio} Normal [facility] Comment on above: Performed By: #### C TERRY SMALLWOODOPN ####[facility] [address] [place], [place] [address]Tbziis Sharri ALP [Catalytic activity/Vol] 97 U/L Normal 38-126 [facility] Comment on above: Performed By: #### C SELIN HSTROPN ####[facility] [address] [place], [place] [address]Byuval Sharri ALT [Catalytic activity/Vol] 36 U/L Normal 21-72 [facility] Comment on above: Performed By: #### C SELIN HSTROPN ####[facility] [address] [place], [place] [address]Zhxlsu Sharri Anion gap [Moles/Vol] 11.0 mmol/L Normal [facility] Comment on above: Performed By: #### C SELIN HSTROPN ####[facility] [address] [place], [place] [id number] Sharri AST [Catalytic activity/Vol] 19 U/L Normal 17-59 [facility] Comment on above: Performed By: #### C SELIN HSTROPN ####[facility] [address] [place], [place] [address]Gerken Sharri Bilirubin [Mass/Vol] 0.6 mg/dL Normal 0.2-1.[address] [facility] Comment on above: Performed By: #### C SELIN HSTROPN ####[facility] [address] [place] [address]Cgkfva Sharri Calcium [Mass/Vol] 9.3 mg/dL Normal 8.4-10.2 [facility] Comment on above: Performed By: #### C SELIN, HSTROPN ####[facility] [address] [place] [address]Cspopw Sharri Chloride [Moles/Vol] 104 mmol/L Normal 98-[address] [facility] Comment on above: Performed By: #### C SELIN HSTROPN ####[facility] [address] [place] [address]Dfibup Sharri CO2 [Moles/Vol] 29.8 mmol/L Normal 22.0-30.[address] [facility] Comment on above: Performed By: #### C SELIN HSTROPN ####[facility] [address] [place], [place] [address]Odxctl Sharri Creatinine [Mass/Vol] 1.01 mg/dL Normal 0.66-1.25 [facility] Comment on above: Performed By: #### C MP, HSTROPN ####[facility] [address] [place], [place] [address]Vegtae Sharri EGFR-AF GRENADIAN >60 Normal >=[address] [facility] Comment on above: Performed By: #### C MP, HSTROPN ####[facility] [address]38[address] [place], [place] [address]Aqdihd Sharri EGFR-NON AF GRENADIAN >60 Normal >=60 [facility] Comment on above: Performed By: #### C SELIN, HSTROPN ####[facility] [address]32[address] [place], [place] [address]Tyleko Sharri Globulin (S) [Mass/Vol] 3.4 g/dL Normal [facility] Comment on above: Performed By: #### C SELIN, HSTROPN ####[facility] [address]pr[address]12 [place], [place] [address]Hspvfm Sharri Glucose [Mass/Vol] 97 mg/dL Normal 74-106 [facility] Comment on above: Performed By: #### C SELIN, HSTROPN ####[facility] [address]3267 [place], [place] [address]Gpdiet Sharri Potassium [Moles/Vol] 3.8 mmol/L Normal 3.4-5.0 [facility] Comment on above: Performed By: #### C MP, HSTROPN ####[facility] [address] [place], [place] [address]Xggzfv Sharri Protein [Mass/Vol] 7.7 g/dL Normal 6.1-8.2 [facility] Comment on above: Performed By: #### C SELIN, HSTROPN ####[facility] [address] [place], [place] [address]Ucuxaz Sharri Sodium [Moles/Vol] 141 mmol/L Normal 137-145 [facility] Comment on above: Performed By: #### C MP, HSTROPN ####[facility] [address] Sharri Urea nitrogen [Mass/Vol] 11.0 mg/dL Normal 9.0-20.0 [facility] Comment on above: Performed By: #### C MP, HSTROPN ####[facility] [address] Sharri Urea nitrogen/Creatinine [Mass ratio] 10.9 mg/mg Normal [facility] Comment on above: Performed By: #### C MP, HSTROPN ####[facility] F[address]ws[address] Sharri PROTIMEon 04-01-2021 INR Coag (PPP) [Relative time] 1.06 {INR} Normal [facility] Comment on above: Performed By: #### P TT, PT ####[facility] [address] [place] [address] Sharri INR GUIDELINES SEE BELOW Normal [facility] Comment on above: Result Comment: YUVAL RED INR: 2.0 - 3.0 CONDITIONS NOT LISTED BELOW 2.5 - 3.5 FOR PROSTHETIC HEART VALVE REPLACEMENT 2.5 - 3.5 RECURRENT THROMBOSIS Performed By: #### P TT, PT ####[facility] K[address] Sharri PT Coag (PPP) [Time] 11.4 s Normal 9.0-11.6 [facility] Comment on above: Performed By: #### P TT, PT ####[facility] Iv[address]pm[address] Sharri PTTon 04-01-2021 aPTT Coag (Bld) [Time] 24.6 s Normal 22.3-36.2 [facility] Comment on above: Performed By: #### P TT, PT ####[facility] L[address] Sharri TROPONIN, HIGH SENSITIVITYon 04-01-2021 HSTROP <4.0 Normal 4.0-42.2 [facility] Comment on above: Result Comment: CUT- OFF POINTS HAVE BEEN ESTABLISHED BASED ON THE FOURTH UNIVERSAL DEFINITIONS OF MYOCARDIAL INFARCTION. THE UPPER REFERENCE LIMIT (URL) OF TROPONIN, DEFINED THE 99TH PERCENTILE OF cTnI DISTRIBUTION IN A REFERENCE POPULATION, HAS BEEN CONFIRMED THE DECISION THRESHOLD FOR NM DIAGNOSIS. Performed By: #### C MP, HSTROPN ####[facility] [address] [place] [id number] Harrell XR CHEST 1 Von 04-01-2021 XR CHEST 1 V EXAMINATION: XR CHEST 1 V HISTORY: Visual disturbance COMPARISON: No relevant comparison available. FINDINGS: LUNGS: No significant pulmonary parenchymal abnormalities. VASCULATURE: No increased pulmonary vasculature. PLEURA: No pneumothorax, effusion, or pleural thickening. CARDIAC: No cardiomegaly or cardiac silhouette abnormality. MEDIASTINUM: No visible mass or adenopathy. BONES: No fracture or visible bone lesion. OTHER: Negative. IMPRESSION: 1. Normal chest. Electronically authenticated by: ASUNCION VILLAREAL Date: 2021-04-01 13:48 Normal [facility] PRIETO Antinuclear Antibodieson 12-19-2020 Antinuclear Abs, IFA Negative Normal . [facility] Comment on above: Result Comment: Nega tive <1:80 Borderline 1:80 Positive >1:80 Performed at: [facility] [place] [address] Refrigeration Houseman: Luc Lala PhD, Phone: [phone] Performed By: #### U PE RAND, SPE, DANA SERUM, DANA,URINE #### [facility] , #### PTT, PT, ADDONUAPLUS #### [facility] [address] [place] [address] Aldolaseon 12-19-2020 Aldolase 3.1 U/L Low 3.3-10.3 [facility] Comment on above: Result Comment: Perf ormed at: [facility] [place] [id number] Refrigeration Houseman: Luc Lala PhD, Phone: [phone] PERFORMED BY: [place] [address] PATHOLOGIST FINISHING AREA OPERATOR JOÃO GALINDO M.D. Performed By: #### U PE RAND, SPE, DANA SERUM, DANA,URINE #### [facility] , #### PTT, PT, ADDONUAPLUS #### [address] Antithyroglobulin Abon 12-19 Antithyroglobulin Ab <1.0 Normal 0.0-0.9 [facility] Comment on above: Result Comment: Thyr oglobulin Antibody measured by [employer] Performed at: [facility] [address] [id number] Refrigeration Houseman: Luc Lala PhD, Phone: [phone] Performed By: #### U PE RAND, SPE, DANA SERUM, DANA,URINE #### [facility] , #### PTT, PT, ADDONUAPLUS #### [address] C-Reactive Proteinon 021 C-Reactive Protein 0.6 mg/dL Normal 0.0-1.0 [facility] Comment on above: Performed By: #### U PE RAND, SPE, DANA SERUM, DANA,URINE #### [facility] , #### PTT, PT, ADDONUAPLUS #### [address] Chromatin Antibodyon 021 Chromatin Antibody <0.2 Normal 0.0-0.9 [facility] Comment on above: Result Comment: Perf ormed at: [facility] [address] [id number] Refrigeration Houseman: Luc Lala PhD, Phone: [phone] Performed By: #### U PE RAND, SPE, DANA SERUM, DANA,URINE #### [facility] , #### PTT, PT, ADDONUAPLUS #### [address] [place] [address] [place] Complement C3on 12-19-2020 Complement C3 160 mg/dL Normal 82-167 [facility] Comment on above: Result Comment: Perf ormed at: [address] [id number] Refrigeration Houseman: Luc Lala PhD, Phone: [phone] Performed By: #### U PE RAND, SPE, DANA SERUM, DANA,URINE #### [facility] , #### PTT, PT, ADDONUAPLUS #### [address] Complement C4on 12-19-2020 Complement C4 23 mg/dL Normal 12-38 [facility] Comment on above: Performed By: #### U PE RAND, SPE, DANA SERUM, DANA,URINE #### [facility] , #### PTT, PT, ADDONUAPLUS #### [address] Complement Total (CH50)on Complement Total (CH50) >60 Normal >41 [facility] Comment on above: Result Comment: Age Male Female 1 - 30 days Not Estab. Not Estab. 31 days - 6 months >32 >20 7 months - 17 years >39 >39 >17 years >41 >41 NOTE: The adult ( >17 years ) reference interval range is used to flag abnormals on this report. If the patient is 17 years old or younger, use the table above to determine out of range values. Performed at: [address] [id number] Refrigeration Houseman: Luc Lala PhD, Phone: [phone] PERFORMED BY: [place] [address] PATHOLOGIST FINISHING AREA OPERATOR JOÃO GALINDO M.D. Performed By: #### U PE RAND, SPE, DANA SERUM, DANA,URINE #### [facility] , #### PTT, PT, ADDONUAPLUS #### [address] Complete Blood Count Auto Di ffon 12-19-2020 Basophils (Bld) [#/Vol] 0.1 10*3/uL Normal 0.0-0.2 [facility] Comment on above: Performed By: #### E SR, CBC #### [facility] [address] [place] [address] [place] #### LUPANTCOAG #### [facility] , Basophils/100 WBC (Bld) 0.9 % Normal . [facility] Comment on above: Performed By: #### E SR, CBC #### [facility] [address] [place] [address] [place] #### LUPANTCOAG #### [facility] , Eosinophils (Bld) [#/Vol] 0.2 10*3/uL Normal 0.0-0.45 [facility] Comment on above: Performed By: #### E SR, CBC #### [place] [address] [place] #### LUPANTCOAG #### [facility] , Eosinophils/100 WBC (Bld) 3.7 % Normal . [facility] Comment on above: Performed By: #### E SR, CBC #### [facility] [address] [place] [address] [place] #### LUPANTCOAG #### [facility] , Erythrocyte distribution width (RBC) [Ratio] 13.0 % Normal 12.0-14.8 [facility] Comment on above: Performed By: #### E SR, CBC #### [facility] [address] [place] [address] [place] #### LUPANTCOAG #### [facility] , Hematocrit (Bld) [Volume fraction] 44.5 % Normal 38.8-50.0 [facility] Comment on above: Performed By: #### E SR, CBC #### [place] [id number] [place] #### LUPANTCOAG #### [facility] , Hemoglobin (Bld) [Mass/Vol] 15.6 g/dL Normal 13.0-17.0 [facility] Comment on above: Performed By: #### E SR, CBC #### [facility] [address] [place] [address] #### LUPANTCOAG #### [facility] , Lymphocytes (Bld) [#/Vol] 2.2 10*3/uL Normal 1.00-4.8 [facility] Comment on above: Performed By: #### E SR, CBC #### [address] #### LUPANTCOAG #### [facility] , Lymphocytes/100 WBC (Bld) 35.5 % Normal . [facility] Comment on above: Performed By: #### E SR, CBC #### [address] #### LUPANTCOAG #### [facility] , MCH (RBC) [Entitic mass] 30.5 pg Normal 27.5-35.2 [facility] Comment on above: Performed By: #### E SR, CBC #### [facility] [address] [place] [address] #### LUPANTCOAG #### [facility] , MCV (RBC) [Entitic vol] 87.2 fL Normal 83.5-101 [facility] Comment on above: Performed By: #### E SR, CBC #### [facility] [address] [place] [address] [place] #### LUPANTCOAG #### [facility] , Mean Corpuscular HGB Conc 35.0 g/dL Normal 32.5-35.6 [facility] Comment on above: Performed By: #### E SR, CBC #### [address] [place] [address] [place] #### LUPANTCOAG #### [facility] , Monocytes (Bld) [#/Vol] 0.6 10*3/uL Normal 0.0-0.8 [facility] Comment on above: Performed By: #### E SR, CBC #### [facility] [address] [place] [address] [place] #### LUPANTCOAG #### [facility] , Monocytes/100 WBC (Bld) 9.2 % Normal . [facility] Comment on above: Performed By: #### E SR, CBC #### [facility] [address] [place] [address] [place] #### LUPANTCOAG #### [facility] , Neutrophils (Bld) [#/Vol] 3.1 10*3/uL Normal 1.8-7.7 [facility] Comment on above: Performed By: #### E SR, CBC #### [address] #### LUPANTCOAG #### [facility] , Neutrophils/100 WBC (Bld) 50.7 % Normal . [facility] Comment on above: Performed By: #### E SR, CBC #### [facility] [address] [place] [address] [place] #### LUPANTCOAG #### [facility] , Nucleated RBC/100 WBC (Bld) [Ratio] 0.2 % Normal 0-0.5 [facility] Comment on above: Performed By: #### E SR, CBC #### [facility] [address] [place] [address] [place] #### LUPANTCOAG #### [facility] , Platelet mean volume (Bld) [Entitic vol] 8.5 fL Normal 6.6-10.1 [facility] Comment on above: Performed By: #### E SR, CBC #### [facility] [address] [place] [address] #### LUPANTCOAG #### [facility] , Platelets (Bld) [#/Vol] 290 10*3/uL Normal 150-450 [facility] Comment on above: Performed By: #### E SR, CBC #### [facility] [address] [place] [address] [place] #### LUPANTCOAG #### [facility] , RBC (Bld) [#/Vol] 5.10 10*6/uL Normal 3.90-5.60 [facility] Comment on above: Performed By: #### E SR, CBC #### [facility] [address] [place] [address] #### LUPANTCOAG #### [facility] , WBC (Bld) [#/Vol] 6.1 10*3/uL Normal 4.5-11.0 [facility] Comment on above: Performed By: #### E SR, CBC #### [facility] [address] [place] [address] #### LUPANTCOAG #### [facility] , Comprehensive Metabolic Pane guillermina 12-19-2020 Albumin [Mass/Vol] 4.6 g/dL Normal 3.2-5.5 [facility] Comment on above: Performed By: #### U PE RAND, SPE, DANA SERUM, DANA,URINE #### [facility] , #### PTT, PT, ADDONUAPLUS #### [address] Albumin/Globulin [Mass ratio] 1.6 {ratio} Normal [facility] Comment on above: Performed By: #### U PE RAND, SPE, DANA SERUM, DANA,URINE #### [facility] , #### PTT, PT, ADDONUAPLUS #### [facility] [address] [place] [address] [place] ALP [Catalytic activity/Vol] 78 U/L Normal 32-92 [facility] Comment on above: Performed By: #### U PE RAND, SPE, DANA SERUM, DANA,URINE #### [facility] , #### PTT, PT, ADDONUAPLUS #### [facility] [address] ALT [Catalytic activity/Vol] 26 U/L Normal 10-60 [facility] Comment on above: Performed By: #### U PE RAND, SPE, DANA SERUM, DANA,URINE #### [facility] , #### PTT, PT, ADDONUAPLUS #### [facility] [address] [place] [address] AST [Catalytic activity/Vol] 21 U/L Normal 10-42 [facility] Comment on above: Performed By: #### U PE RAND, SPE, DANA SERUM, DANA,URINE #### [facility] , #### PTT, PT, ADDONUAPLUS #### [facility] [address] [place] [address] [place] Bilirubin [Mass/Vol] 0.6 mg/dL Normal 0.3-1.2 [facility] Comment on above: Performed By: #### U PE RAND, SPE, DANA SERUM, DANA,URINE #### [facility] , #### PTT, PT, ADDONUAPLUS #### [facility] [address] [place] [address] [place] Calcium [Mass/Vol] 9.5 mg/dL Normal 8.2-10.2 [facility] Comment on above: Performed By: #### U PE RAND, SPE, DANA SERUM, DANA,URINE #### [facility] , #### PTT, PT, ADDONUAPLUS #### [facility] [address] [place] [address] [place] Chloride [Moles/Vol] 103 mmol/L Normal 95-114 [facility] Comment on above: Performed By: #### U PE RAND, SPE, DANA SERUM, DANA,URINE #### [facility] , #### PTT, PT, ADDONUAPLUS #### [facility] [address] [place] [address] CO2 [Moles/Vol] 28.1 mmol/L Normal 22.0-30.0 [facility] Comment on above: Performed By: #### U PE RAND, SPE, DANA SERUM, DANA,URINE #### [facility] , #### PTT, PT, ADDONUAPLUS #### [address] Creatinine [Mass/Vol] 0.97 mg/dL Normal 0.64-1.27 [facility] Comment on above: Performed By: #### U PE RAND, SPE, DANA SERUM, DANA,URINE #### [facility] , #### PTT, PT, ADDONUAPLUS #### [address] Estimated GFR ( Eunice > 60 [facility] Comment on above: Result Comment: GFR estimated reference range: According to KDOQI guidelines, <60 ml/min/1.73m2 is sufficient to diagnose a patient with chronic kidney disease. Performed By: #### U PE RAND, SPE, DANA SERUM, DANA,URINE #### [facility] , #### PTT, PT, ADDONUAPLUS #### [facility] [address] [place] [address] Estimated GFR (Non- Am > 60 [facility] Comment on above: Performed By: #### U PE RAND, SPE, DANA SERUM, DANA,URINE #### [facility] , #### PTT, PT, ADDONUAPLUS #### [address] Globulin (S) [Mass/Vol] 2.9 g/dL [facility] Comment on above: Performed By: #### U PE RAND, SPE, DANA SERUM, DANA,URINE #### [facility] , #### PTT, PT, ADDONUAPLUS #### [facility] [address] [place] [address] Glucose [Mass/Vol] 93 mg/dL Normal 70-100 [facility] Comment on above: Result Comment: [facility] Glucose Reference Range is dependent on time and content of last meal. Glucose of more than 200 mg/dL in a nonstressed, ambulatory subject supports the diagnosis of Diabetes Mellitus. ADA recommended reference range Performed By: #### U PE RAND, SPE, DANA SERUM, DANA,URINE #### [facility] , #### PTT, PT, ADDONUAPLUS #### [address] Potassium [Moles/Vol] 4.1 mmol/L Normal 3.5-5.1 [facility] Comment on above: Performed By: #### U PE RAND, SPE, DANA SERUM, DANA,URINE #### [facility] , #### PTT, PT, ADDONUAPLUS #### [facility] [address] [place] [address] Protein [Mass/Vol] 7.5 g/dL Normal 6.1-7.9 [facility] Comment on above: Performed By: #### U PE RAND, SPE, DANA SERUM, DANA,URINE #### [facility] , #### PTT, PT, ADDONUAPLUS #### [facility] [address] [place] [address] [place] Sodium [Moles/Vol] 139 mmol/L Normal 136-146 [facility] Comment on above: Performed By: #### U PE RAND, SPE, DANA SERUM, ADNA,URINE #### [facility] , #### PTT, PT, ADDONUAPLUS #### [facility] [address] [place] [address] [place] Urea nitrogen [Mass/Vol] 7 mg/dL Low 9-23 [facility] Comment on above: Performed By: #### U PE RAND, SPE, DANA SERUM, DANA,URINE #### [facility] , #### PTT, PT, ADDONUAPLUS #### [facility] [address] [place] [address] Creatine Kinaseon 12-19-2020 CK [Catalytic activity/Vol] 115 U/L Normal 22-269 [facility] Comment on above: Result Comment: PERF ORMED BY: [place] [address] PATHOLOGIST FINISHING AREA OPERATOR JOÃO GALINDO M.D. Performed By: #### U PE RAND, SPE, DANA SERUM, DANA,URINE #### [facility] , #### PTT, PT, ADDONUAPLUS #### [facility] [address] [place] [address] [place] Dipstick and Microscopicon 0 12-19-2020 Appearance (U) Clear Normal Clear [facility] Comment on above: Order Comment: Name Collection Type:: Clean-Voided Midstream Performed By: #### U PE RAND, SPE, DANA SERUM, DANA,URINE #### [facility] , #### PTT, PT, ADDONUAPLUS #### [facility] [address] [place] [address] Bacteria,Urine None Seen Normal None Seen [facility] Comment on above: Order Comment: Name Collection Type:: Clean-Voided Midstream Performed By: #### U PE RAND, SPE, DANA SERUM, DANA,URINE #### [facility] , #### PTT, PT, ADDONUAPLUS #### [facility] [address] [place] [address] [place] Bilirubin,Urine Negative Normal Negative [facility] Comment on above: Order Comment: Name Collection Type:: Clean-Voided Midstream Performed By: #### U PE RAND, SPE, DANA SERUM, DANA,URINE #### [facility] , #### PTT, PT, ADDONUAPLUS #### [facility] [address] [place] [address] Color (U) Yellow Normal Yellow [facility] Comment on above: Order Comment: Name Collection Type:: Clean-Voided Midstream Performed By: #### U PE RAND, SPE, DANA SERUM, DANA,URINE #### [facility] , #### PTT, PT, ADDONUAPLUS #### [facility] [address] [place] [address] Glucose Ql (U) Normal Normal Normal [facility] Comment on above: Order Comment: Name Collection Type:: Clean-Voided Midstream Performed By: #### U PE RAND, SPE, DANA SERUM, DANA,URINE #### [facility] , #### PTT, PT, ADDONUAPLUS #### [address] Hyaline Casts,Urine 0-8 Normal 0-8 [facility] Comment on above: Order Comment: Name Collection Type:: Clean-Voided Midstream Result Comment: PERF ORMED BY: [place] [address] PATHOLOGIST FINISHING AREA OPERATOR JOÃO GALINDO M.D. Performed By: #### U PE RAND, SPE, DANA SERUM, DANA,URINE #### [facility] , #### PTT, PT, ADDONUAPLUS #### [address] Ketones Ql (U) Trace High Negative [facility] Comment on above: Order Comment: Name Collection Type:: Clean-Voided Midstream Performed By: #### U PE RAND, SPE, DANA SERUM, DANA,URINE #### [facility] , #### PTT, PT, ADDONUAPLUS #### [address] Leukocyte esterase Test strip Ql (U) Negative Normal Negative [facility] Comment on above: Order Comment: Name Collection Type:: Clean-Voided Midstream Performed By: #### U PE RAND, SPE, DANA SERUM, DANA,URINE #### [facility] , #### PTT, PT, ADDONUAPLUS #### [facility] [address] [place] [address] Nitrite,Urine Negative Normal Negative [facility] Comment on above: Order Comment: Name Collection Type:: Clean-Voided Midstream Performed By: #### U PE RAND, SPE, DANA SERUM, DANA,URINE #### [facility] , #### PTT, PT, ADDONUAPLUS #### [facility] [address] [place] [address] Occult Blood,Urine Negative Normal Negative [facility] Comment on above: Order Comment: Name Collection Type:: Clean-Voided Midstream Performed By: #### U PE RAND, SPE, DANA SERUM, DANA,URINE #### [facility] , #### PTT, PT, ADDONUAPLUS #### [facility] [address] [place] [address] pH (U) 6.0 [pH] Normal 5.0-9.0 [facility] Comment on above: Order Comment: Name Collection Type:: Clean-Voided Midstream Performed By: #### U PE RAND, SPE, DANA SERUM, DANA,URINE #### [facility] , #### PTT, PT, ADDONUAPLUS #### [facility] [address] [place] [address] Protein,Urine Negative Normal Negative [facility] Comment on above: Order Comment: Name Collection Type:: Clean-Voided Midstream Performed By: #### U PE RAND, SPE, DANA SERUM, DANA,URINE #### [facility] , #### PTT, PT, ADDONUAPLUS #### [facility] [address] [place] [address] RBC LM.HPF (Urine sed) [#/Area] 0 /[HPF] Normal 0-4 [facility] Comment on above: Order Comment: Name Collection Type:: Clean-Voided Midstream Performed By: #### U PE RAND, SPE, DANA SERUM, DANA,URINE #### [facility] , #### PTT, PT, ADDONUAPLUS #### [facility] [address] [place] [address] Specificy [place],Urine 1.027 Normal 1.001-1.030 [facility] Comment on above: Order Comment: Name Collection Type:: Clean-Voided Midstream Performed By: #### U PE RAND, SPE, DANA SERUM, DANA,URINE #### [facility] , #### PTT, PT, ADDONUAPLUS #### [facility] [address] [place] [address] Squamous Epithelial Cell,Urine None Seen Normal 0-2 [facility] Comment on above: Order Comment: Name Collection Type:: Clean-Voided Midstream Performed By: #### U PE RAND, SPE, DANA SERUM, DANA,URINE #### [facility] , #### PTT, PT, ADDONUAPLUS #### [facility] [address] [place] [address] Urobilinogen,Urine Normal Normal Normal [facility] Comment on above: Order Comment: Name Collection Type:: Clean-Voided Midstream Performed By: #### U PE RAND, SPE, DANA SERUM, DANA,URINE #### [facility] , #### PTT, PT, ADDONUAPLUS #### [facility] [address] [place] [address] WBC,Urine 1-2 Normal 0-4 [facility] Comment on above: Order Comment: Name Collection Type:: Clean-Voided Midstream Performed By: #### U PE RAND, SPE, DANA SERUM, DANA,URINE #### [facility] , #### PTT, PT, ADDONUAPLUS #### [facility] [address] Erythrocyte Sedimentation Ra sonya 12-19-2020 ESR (Bld) [Velocity] 12 mm/h Normal 0-14 [facility] Comment on above: Result Comment: PERF ORMED BY: [address] [place] [address] PATHOLOGIST FINISHING AREA OPERATOR JOÃO GALINDO M.D. Performed By: #### E SR, CBC #### [facility] [address] #### LUPANTCOAG #### [facility] , Free T4 (Free Thyroxine)on 0 12-19-2020 Free T4 [Mass/Vol] 0.87 ng/dL Normal 0.61-1.12 [facility] Comment on above: Performed By: #### U PE RAND, SPE, DANA SERUM, DANA,URINE #### [facility] , #### PTT, PT, ADDONUAPLUS #### [facility] [address] [place] [address] HLA B27 Disease Associationo n 12-19-2020 HLA B27 Disease Association Positive Normal . 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 This procedure rules out the B*27:06 and 27:09 alleles, which the literature suggests are not associated with spondyloarthropathies. B27 allele interpretation for all loci based on IMGT/HLA database version 3.38 This test was developed and its performance characteristics determined by [facility]. It has not been cleared or approved by the Food and Drug Administration. [facility] CLIA ID Number [id number] This test was performed using PCR (Polymerase Chain Reaction)/SSOP (Sequence Specific Oligonucleotide Probes) technique. SBT (Sequence Based Typing) and/or SSP (Sequence Specific Primers) may be used as supplemental methods when necessary. Please contact [facility] Customer Service at if you have any questions. Director of [facility] Laboratory Dr Imer Floyd, PhD Performed at: [address] [place] [id number] Refrigeration Houseman: Imer Floyd PhD, Phone: [phone] PERFORMED BY: [place] [address] PATHOLOGIST FINISHING AREA OPERATOR JOÃO GALINDO M.D. Performed By: #### U PE RAND, SPE, DANA SERUM, DANA,URINE #### [facility] , #### PTT, PT, ADDONUAPLUS #### [facility] [address] [place] [address] [place] Immunofixation, (DANA), Urine on 12-19-2020 Immunofixation, (DANA), Urine Normal . [facility] Comment on above: Result Comment: No m onoclonality detected. Performed at: [address] [id number] Refrigeration Houseman: Luc Lala PhD, Phone: [phone] Performed By: #### U PE RAND, SPE, DANA SERUM, DANA,URINE #### [facility] , #### PTT, PT, ADDONUAPLUS #### [place] [address] [place] Immunofixation,Serumon 12-19 Immunofixation, Serum Normal . [facility] Comment on above: Result Comment: No m onoclonality detected. Performed By: #### U PE RAND, SPE, DANA SERUM, DANA,URINE #### [facility] , #### PTT, PT, ADDONUAPLUS #### [facility] [address] [place] [address] [place] Immunoglobulin A, Serum 346 mg/dL Normal 90-386 [facility] Comment on above: Performed By: #### U PE RAND, SPE, DANA SERUM, DANA,URINE #### [facility] , #### PTT, PT, ADDONUAPLUS #### [facility] [address] [place] [address] [place] Immunoglobulin G 1128 mg/dL Normal 603-1613 [facility] Comment on above: Performed By: #### U PE RAND, SPE, DANA SERUM, DANA,URINE #### [facility] , #### PTT, PT, ADDONUAPLUS #### [address] Immunoglobulin M, Serum 72 mg/dL Normal 20-172 [facility] Comment on above: Result Comment: Perf ormed at: CB - [facility] [address] [id number] Refrigeration Houseman: Luc Lala PhD, Phone: [phone] PERFORMED BY: [place] [address] PATHOLOGIST FINISHING AREA OPERATOR JOÃO GALINDO M.D. Performed By: #### U PE RAND, SPE, DANA SERUM, DANA,URINE #### [facility] , #### PTT, PT, ADDONUAPLUS #### [address] Lupus Anticoagulant Compon 0 12-19-2020 Dilute Prothrombin Time (dPt) 44.2 Normal 0.0-55.0 [facility] Comment on above: Performed By: #### E SR, CBC #### [facility] [address] [place] [address] #### LUPANTCOAG #### [facility] , dPT Confirm Ratio 1.14 Normal 0.00-1.40 [facility] Comment on above: Performed By: #### E SR, CBC #### [facility] [address] [place] [address] #### LUPANTCOAG #### [facility] , DRVVT Lupus 39.9 Normal 0.0-47.0 [facility] Comment on above: Performed By: #### E SR, CBC #### [facility] [address] [place] [address] #### LUPANTCOAG #### [facility] , Interpretation Comment: Normal . [facility] Comment on above: Result Comment: No l upus anticoagulant was detected. Performed at: BN - [facility] [address] [id number] Refrigeration Houseman: April Ramires MD, Phone: [phone] PERFORMED BY: [place] [address] PATHOLOGIST FINISHING AREA OPERATOR JOÃO GALINDO M.D. Performed By: #### E SR, CBC #### [facility] [address] [place] [address] #### LUPANTCOAG #### [facility] , PTT-LA 34.7 Normal 0.0-51.9 [facility] Comment on above: Performed By: #### E SR, CBC #### [address] #### LUPANTCOAG #### [facility] , Thrombin Time 18.0 Normal 0.0-23.0 [facility] Comment on above: Performed By: #### E SR, CBC #### [facility] [address] [place] [address] #### LUPANTCOAG #### [facility] , Myoglobinon 12-19-2020 Myoglobin [Mass/Vol] 24 ng/mL Low 28-72 [facility] Comment on above: Result Comment: Perf ormed at: CB - [facility] [address] [id number] Refrigeration Houseman: Luc Lala PhD, Phone: [phone] Performed By: #### U PE RAND, SPE, DANA SERUM, DANA,URINE #### [facility] , #### PTT, PT, ADDONUAPLUS #### [facility] [address] [place] [address] Partial Thromboplastin Timeo n 12-19-2020 aPTT Coag (Bld) [Time] 37.2 s High 25.1-36.5 [facility] Comment on above: Order Comment: List the anticoagulant: NONE Result Comment: PERF ORMED BY: [place] [address] PATHOLOGIST FINISHING AREA OPERATOR JOÃO GALINDO M.D. Performed By: #### U PE RAND, SPE, DANA SERUM, DANA,URINE #### [facility] , #### PTT, PT, ADDONUAPLUS #### [facility] [address] [place] [address] [place] Protein Electro, Random Urin león 12-19-2020 Albumin, Urine 37.3 % Normal . [facility] Comment on above: Performed By: #### U PE RAND, SPE, DANA SERUM, DANA,URINE #### [facility] , #### PTT, PT, ADDONUAPLUS #### [facility] [address] [place] [address] [place] Cavza-1-Jlybsatl, Urine 1.4 % Normal . [facility] Comment on above: Performed By: #### U PE RAND, SPE, DANA SERUM, DANA,URINE #### [facility] , #### PTT, PT, ADDONUAPLUS #### [facility] [address] [place] [address] [place] Pwbxf-3-Oglrttts, Urine 17.9 % Normal . [facility] Comment on above: Performed By: #### U PE RAND, SPE, DANA SERUM, DANA,URINE #### [facility] , #### PTT, PT, ADDONUAPLUS #### [facility] [address] [place] [address] [place] Beta Globulin, Urine 29.8 % Normal . [facility] Comment on above: Performed By: #### U PE RAND, SPE, DANA SERUM, DANA,URINE #### [facility] , #### PTT, PT, ADDONUAPLUS #### [facility] [address] [place] [address] [place] Gamma Globulin, Urine 13.7 % Normal . [facility] Comment on above: Performed By: #### U PE RAND, SPE, DANA SERUM, DANA,URINE #### [facility] , #### PTT, PT, ADDONUAPLUS #### [address] M-Juvenal % Not Observed Normal Not Observed [facility] Comment on above: Performed By: #### U PE RAND, SPE, DANA SERUM, DANA,URINE #### [facility] , #### PTT, PT, ADDONUAPLUS #### [address] Please Note: Normal . [facility] Comment on above: Result Comment: Prot ein electrophoresis scan will follow via computer, mail, or tape editor delivery. PERFORMED BY: [place] [address] PATHOLOGIST FINISHING AREA OPERATOR JOÃO GALINDO M.D. Performed By: #### U PE RAND, SPE, DANA SERUM, DANA,URINE #### [facility] , #### PTT, PT, ADDONUAPLUS #### [address] Protein (U) [Mass/Vol] 19.2 mg/dL Normal Not Estab. [facility] Comment on above: Performed By: #### U PE RAND, SPE, DANA SERUM, DANA,URINE #### [facility] , #### PTT, PT, ADDONUAPLUS #### [address] Protein Electrophoresis, Ser umon 12-19-2020 Albumin [Mass/Vol] 4.3 g/dL Normal 2.9-4.4 [facility] Comment on above: Performed By: #### U PE RAND, SPE, DANA SERUM, DANA,URINE #### [facility] , #### PTT, PT, ADDONUAPLUS #### [address] [place] [address] [place] Albumin/Globulin [Mass ratio] 1.2 {ratio} Normal 0.7-1.7 [facility] Comment on above: Performed By: #### U PE RAND, SPE, DANA SERUM, DANA,URINE #### [facility] , #### PTT, PT, ADDONUAPLUS #### [facility] [address] [place] [address] [place] Dxxii-8-Uxttovbd 0.3 g/dL Normal 0.0-0.4 [facility] Comment on above: Performed By: #### U PE RAND, SPE, DANA SERUM, DANA,URINE #### [facility] , #### PTT, PT, ADDONUAPLUS #### [address] Hkqjg-4-Xqdmaxfb 0.8 g/dL Normal 0.4-1.0 [facility] Comment on above: Performed By: #### U PE RAND, SPE, DANA SERUM, DANA,URINE #### [facility] , #### PTT, PT, ADDONUAPLUS #### [facility] [address] [place] [address] [place] Beta Globulin 1.3 g/dL Normal 0.7-1.3 [facility] Comment on above: Performed By: #### U PE RAND, SPE, DANA SERUM, DANA,URINE #### [facility] , #### PTT, PT, ADDONUAPLUS #### [facility] [address] [place] [address] [place] Gamma Globulin 1.1 g/dL Normal 0.4-1.8 [facility] Comment on above: Performed By: #### U PE RAND, SPE, DANA SERUM, DANA,URINE #### [facility] , #### PTT, PT, ADDONUAPLUS #### [facility] [address] [place] [address] [place] Globulin (S) [Mass/Vol] 3.5 g/dL Normal 2.2-3.9 [facility] Comment on above: Performed By: #### U PE RAND, SPE, DANA SERUM, DANA,URINE #### [facility] , #### PTT, PT, ADDONUAPLUS #### [facility] [address] M-Juvenal Not Observed Normal Not Observed [facility] Comment on above: Performed By: #### U PE RAND, SPE, DANA SERUM, DANA,URINE #### [facility] , #### PTT, PT, ADDONUAPLUS #### [facility] [address] [place] [address] Protein [Mass/Vol] 7.8 g/dL Normal 6.0-8.5 [facility] Comment on above: Performed By: #### U PE RAND, SPE, DANA SERUM, DANA,URINE #### [facility] , #### PTT, PT, ADDONUAPLUS #### [facility] [address] [place] [address] SPE-Note Normal . [facility] Comment on above: Result Comment: Prot ein electrophoresis scan will follow via computer, mail, or tape editor delivery. Performed at: [facility] [id number] Refrigeration Houseman: Luc Lala PhD, Phone: [phone] Performed By: #### U PE RAND, SPE, DANA SERUM, DANA,URINE #### [facility] , #### PTT, PT, ADDONUAPLUS #### [facility] [address] [place] [address] Prothrombin Time INRon 12-19 INR Coag (PPP) [Relative time] 1.1 {INR} Normal [facility] Comment on above: Order Comment: List the anticoagulant: NONE Result Comment: INR Therapeutic Range A) Pre- and Peroperative OAT started two weeks before surgery. NOT HIP SURGERY: 1.5 - 2.5 HIP SURGERY: 2 - 3 B) Primary and secondary prevention of venous THROMBOSIS: 2 - 3 C) Active venous thrombosis, pulmonary embolism and prevention of recurrent venous thrombosis: 2 - 3 D) Prevention of arterial thromboembolism including patients with mechanical heart valves: 3 - 4.5 Performed By: #### U PE RAND, SPE, DANA SERUM, DANA,URINE #### [facility] , #### PTT, PT, ADDONUAPLUS #### [facility] [address] [place] [address] PT Coag (PPP) [Time] 12.4 s Normal 9.0-12.9 [facility] Comment on above: Order Comment: List the anticoagulant: NONE Performed By: #### U PE RAND, SPE, DANA SERUM, DANA,URINE #### [facility] , #### PTT, PT, ADDONUAPLUS #### [address] RPR w/rfx to Quant TP Abson 12-19-2020 RPR, Rfx Quant RPR Non-Reactive Normal Non Reactive [facility] Comment on above: Result Comment: Perf ormed at: [facility] [id number] Refrigeration Houseman: Luc Lala PhD, Phone: [phone] PERFORMED BY: [place] [address] PATHOLOGIST FINISHING AREA OPERATOR JOÃO GALINDO M.D. Performed By: #### U PE RAND, SPE, DANA SERUM, DANA,URINE #### [facility] , #### PTT, PT, ADDONUAPLUS #### [facility] [address] [place] [address] Thyroid Peroxidase Antibodie son 12-19-2020 Thyroid Peroxidase Antibodies <9 Normal 0-34 [facility] Comment on above: Result Comment: Perf ormed at: [facility] [id number] Refrigeration Houseman: Luc Lala PhD, Phone: [phone] Performed By: #### U PE RAND, SPE, DANA SERUM, DANA,URINE #### [facility] , #### PTT, PT, ADDONUAPLUS #### [address] Thyroid Stimulating Hormoneo n 12-19-2020 TSH Qn 1.85 m[IU]/L Normal 0.45-5.33 [facility] Comment on above: Result Comment: PERF ORMED BY: [place] [address] PATHOLOGIST FINISHING AREA OPERATOR JOÃO GALINDO M.D. Performed By: #### U PE RAND, SPE, DANA SERUM, ADNA,URINE #### [facility] , #### PTT, PT, ADDONUAPLUS #### [address] XR hand BI 2Von 12-19-2020 XR hand BI 2V [facility] [address] [place] [address] XRay Report Signed Patient: Christiano Foster MR#: [id number] 72 : 1990 Acct:[id number] Age/Sex: 30 / M ADM Date: 12/19/20 Loc: ICXD Room: [facility] Attending Dr: Ronny Yeung MD Ordering Provider: Aaron Yeung MD Date of Service: 12/19/20 XR/XR wrist BI 2V: PAIN, POLYARTHRALGIA ([id number]) XR/XR hand BI 2V: . Copies to: Aaron Yeung MD CLINICAL DATA: Bilateral hand and wrist pain and locking of the fingers. Possible lupus. BILATERAL WRISTS - 2 views each COMPARISON: None AP and lateral views were obtained. No fractures or dislocation noted. The joint spaces are maintained. There is no hypertrophy. No soft tissue swelling is identified. XR/XR wrist BI 2V IMPRESSION: NO ACUTE BONY FINDINGS. BILATERAL HANDS - 2 views each COMPARISON: None AP and lateral views were obtained. No fractures or dislocation are identified. There is no joint space narrowing or significant degenerative disease. No soft tissue swelling is noted. IMPRESSION: NO ACUTE BONY FINDINGS. Impression dictated by: Sharri Frost M.D.12/19/2020 1:58 PM Dictation Location: [place] [address] Transcribed By: SWATI 12/19/20 1358 Dictated By: Sharri Frost MD 12/19/20 1356 Signed By: 12/19/20 1358 [facility] Vital Signs Date Time Vital Sign Value Performing Clinician Faci litkahlil 08-03-2024 15:02-0500 Body height 170.2 cm Aaron Christopher DO Work Phone: [facility] 08-03-2024 15:02-0500 Body mass index (BMI) [Ratio] 31.32 kg/m2 Aaron Petznick DO Work Phone: [facility] 08-03-2024 15:02-0500 Body temperature 98.4 [degF] Aaron Petznick DO Work Phone: [facility] 08-03-2024 15:02-0500 Body weight 90.72 kg Aaron Petznick DO Work Phone: [facility] 08-03-2024 15:02-0500 Diastolic blood pressure 74 mm[Hg] Aaron Petznick DO Work Phone: [facility] 08-03-2024 15:02-0500 Heart rate 94 /min Aaron Petznick DO Work Phone: [facility] 08-03-2024 15:02-0500 SaO2% (BldA) [Mass fraction] 99 % Aaron Petznick DO Work Phone: [facility] 08-03-2024 15:02-0500 Systolic blood pressure 116 mm[Hg] Aaron Petznick DO Work Phone: [facility] Healthcare Encounters Encounter Date Encounter Type Care Provider Facility Start: 08-03-2024 End: 08-03-2024 Office outpatient visit 15 minutes Aaron Ilya Christopher DO Work Phone: [phone] Comment on above: Dysfunction of left eustachian tube (Primary Dx); Obesity (BMI 30-39.9); Other migraine without status migrainosus, not intractable ([facility]) Start: 08-03-2024 End: 08-03-2024 ambulatory AARON C PETZNICK Not Available Start: 08-03-2024 End: 08-03-2024 Bamboo flowsheet Aaron C Petznick DO Work Phone: [facility] Start: 08-03-2024 End: 08-03-2024 Bamboo flowsheet Aaron C Petznick DO Work Phone: [facility] Start: 01-03-2024 End: 01-03-2024 ambulatory AARON C PETZNICK Not Available Start: 12-31-2023 End: 12-31-2023 ambulatory AARON C PETZNICK Not Available Start: 11-07-2023 End: 11-07-2023 ambulatory AARON C PETZNICK Not Available Start: 02-06-2022 End: 02-06-2022 ambulatory AARON PETZNICK Facility:[facility] Start: 07-06-2021 End: 07-06-2021 ambulatory AARON PETZNICK Facility:[facility] Start: 06-08-2021 End: 06-08-2021 ambulatory AARON PETZNICK Facility:[facility] Start: 05-21-2021 End: 05-21-2021 ambulatory AARON PETZNICK Facility:[facility] Start: 05-20-2021 End: 05-20-2021 ambulatory AARON PETZNICK Facility:[facility] Start: 04-01-2021 End: 04-01-2021 ambulatory AARON PETZNICK Facility:[facility] Plan of Treatment Date Care Activity Detail Author Start: 08-03-2024 End: 08-03-2024 Patient encounter procedure 08/03/2024 2:45 PM EST Office Visit [facility] [address] [place] [address] Aaron Christopher, DO [address] [place], [place] [id number] Arrived [facility] [address] Comment on above: Arrived Start: 04-26-2024 Influenza vaccination Influenza Vacc ine (#1) [facility] Payers Date Payer Category Payer [facility] [id number] 1992 Unknown [id number]. 2.593 1992 Unknown [id number] [id number]. 2.593 1992 Unknown [id number] 2.16.840.1.352304.3.579. 2.593 1992 Unknown [id number] 2.16.840.1.031286.3.579. 2.593 1992 Unknown [id number] 2.16.840.1.907073.3.579. 2.593 1992 Unknown [id number] 2.16.840.1.283544.3.579. 2.593 1992 Unknown [id number] 2.16.840.1.622514.3.579. 2.1259 1992 Unknown [id number] 2.16.840.1.531066.3.579. 2.1259 1992 Unknown [id number] 2.16.840.1.355379.3.579. 2.1259 1992 Unknown [id number] [id number]. 2.1259 1959 Unknown [id number] Social History Date Type Detail Facility Start: 01-28-2023 Tobacco smoking stat [facility] Never smoked tobacco [facility] Start: 01-28-2023 Tobacco use and exposure Smoke less tobacco non-user [facility] Start: 12-31-2023 End: 08-03-2024 Alcoholic beverage intake Current drinker of alcohol (finding) [facility] Start: 12-31-2023 End: 08-03-2024 Alcoholic beverage intake [facility] Start: 12-31-2023 End: 08-03-2024 Tobacco use panel [facility] Start: 1990 Sex assigned at Not on file [facility] History of Present illness Narrative 08-03-2024 Aaron Caraballo Hamida, DO - 08/03/2024 2:45 PM EST Note Date & Type Note Facility 08-03-2024 History of Presen t illness Narrative Images from the original note were not included. Christiano Foster is a 33 y.o. male presents with chief complaint of Chief Complaint Patient presents with Tinnitus Christiano was seen today for tinnitus. Diagnoses and all orders for this visit: Dysfunction of left eustachian tube - predniSONE (Deltasone) 20 MG tablet; Take 2 tablets (40 mg) by mouth Daily for 3 days, THEN 1 tablet (20 mg) Daily for 3 days, THEN 0.5 tablets (10 mg) Daily for 4 days. - azithromycin (Zithromax) 250 MG tablet; Take 2 tablets (500 mg) by mouth Daily for 1 day, THEN 1 tablet (250 mg) Daily for 4 days. - fluticasone (Flonase) 50 MCG/ACT nasal spray; Administer 2 sprays into each nostril Daily Shake gently. Before first use, prime pump. After use, clean tip and replace cap. Obesity (BMI 30-39.9) Other migraine without status migrainosus, not intractable (CMS/HCC) Assessment & Plan 1. Tinnitus. The presence of fluid behind the tympanic membrane may be impeding its mobility, leading to a reduction in sound transmission and potentially causing the perceived high-pitched noises. The etiology could be neurological, possibly related to his migraine headaches. A comprehensive treatment approach will be employed, including the prescription of Flonase, an antibiotic, and a steroid. This regimen aims to facilitate drainage from the eustachian tube, reduce lymph node size, and alleviate any inflammation. He is advised to contact the office if there is no improvement by the end of the week. If symptoms persist, further investigations such as a hearing test and MRI may be considered. 2. Migraine headaches. The migraines could be triggered by fatigue, stress, or other factors. He is advised to take magnesium supplements, specifically 400 to 500 mg daily, to help manage the headaches. The course of steroids prescribed for tinnitus may also help alleviate the migraines. AARON CHRISTOPHER D.O. This note was entered using [employer]. Grammatical and dictation errors maybe present in translation *I have reviewed and reconciled the history and medication list with the patient today* History of Present Illness Ringing in left ear started Saturday morning when he woke up and has persisted. Denies ear pain or drainage. Describes ringing as constant high pitched ringing. The patient presents for evaluation of ringing in his left ear. He reports the onset of tinnitus in his left ear upon awakening on Saturday. The intensity of the ringing has remained consistent since its onset. He is not experiencing any associated pain or changes in his auditory perception. He has been in good health over the past few months, with no history of head trauma or exposure to unusual noise levels. He does not have Flonase at home. He also mentions a recent increase in the frequency of migraines, which he attributes to physical activity and movement. SUBJECTIVE: Current Medications: Allergies/Social History: Depression Screen/Family History: Current Outpatient Medications on File Prior to Visit Medication Sig Dispense Refill famotidine (Pepcid) 20 MG tablet Take 20 mg by mouth in the morning and 20 mg before bedtime. ondansetron ODT (Zofran-ODT) 4 MG disintegrating tablet DISSOLVE 1 TABLET ORALLY EVERY 6 HOURS NEEDED FOR NAUSEA AND VOMITING 20 tablet 3 tiZANidine (Zanaflex) 2 MG tablet TAKE 1 TABLET BY MOUTH AT BEDTIME 90 tablet 1 [DISCONTINUED] dexAMETHasone (Decadron) 6 MG tablet Take 1 tablet (6 mg) by mouth Daily for 7 days 7 tablet 0 [DISCONTINUED] hyoscyamine (Levsin) 0.125 MG SL tablet DISSOLVE 1 TABLET UNDER THE TONGUE EVERY 6 HOURS NEEDED FOR ABDOMINAL PAIN No current facility-administered medications on file prior to visit. Allergies Allergen Reactions Morphine Anaphylaxis Penicillin G Anaphylaxis Codeine Unknown Social History Tobacco Use Smoking status: Never Smokeless tobacco: Never Vaping Use Vaping status: Never Used Substance Use Topics Alcohol use: Yes Alcohol/week: 1.0 standard drink of alcohol Types: 1 Standard drinks or equivalent per week Depression: Not at risk (08/03/2024) PHQ-2 PHQ-2 Score: 0 Family History Problem Relation Name Age of Onset Lupus Mother Heart disease Mother Lupus Father Diabetes Father Hypertension Father Heart disease Father Past Medical History: Surgical History: Past Medical History: Diagnosis Date Anxiety IBS (irritable bowel syndrome) Past Surgical History: Procedure Laterality Date CHOLECYSTECTOMY REVIEW OF SYMPTOMS: Review of Systems Constitutional: Negative for fatigue. HENT: Negative for rhinorrhea. Respiratory: Negative for cough and shortness of breath. Cardiovascular: Negative for chest pain. Gastrointestinal: Negative for abdominal distention. Skin: Negative for rash. Neurological: Negative for dizziness. All other systems reviewed and are negative. OBJECTIVE: 08/03/2024 3:02 PM 12/31/2023 10:53 AM 11/07/2023 2:07 PM 01/29/2023 1:30 PM 05/29/2021 12:00 PM 04/04/2021 12:00 PM 11/29/2020 12:00 PM Vitals BMI 31.32 kg/m2 30.23 kg/m2 30.54 kg/m2 28.35 kg/m2 26.22 kg/m2 27.1 kg/m2 28.98 kg/m2 BSA (m2) 2.07 m2 2.03 m2 2.05 m2 1.97 m2 1.89 m2 1.93 m2 1.99 m2 Systolic 116 114 116 112 110 112 116 Diastolic 74 72 72 74 74 70 74 Heart Rate 94 84 77 87 SpO2 99 % 99 % 97 % 98 % Temp 98.4 F 98.3 F 98.3 F 98.4 F Height (in) 5' 7 5' 7 5' 7 5' 7 5' 7 5' 7 5' 7 Weight (lb) 200 193 195 181 167.4 173 185 Visit Report Report Report Report Report GENERAL EXAM: Physical Exam Vitals and nursing note reviewed. Constitutional: General: He is not in acute distress. Appearance: Normal appearance. He is not ill-appearing. HENT: Head: Normocephalic and atraumatic. Right Ear: External ear normal. A middle ear effusion is present. Tympanic membrane is retracted. Tympanic membrane is not injected. Left Ear: Tympanic membrane and external ear normal. Tympanic membrane is not retracted. Nose: Nose normal. Eyes: General: No scleral icterus. Right eye: No discharge. Left eye: No discharge. Extraocular Movements: Extraocular movements intact. Musculoskeletal: Cervical back: Neck supple. Skin: General: Skin is warm and dry. Neurological: General: No focal deficit present. Mental Status: He is alert and oriented to person, place, and time. Mental status is at baseline. Psychiatric: Mood and Affect: Mood normal. Behavior: Behavior normal. Thought Content: Thought content normal. Judgment: Judgment normal. ADDITIONAL EXAM: Physical Exam There is no wax in the ears. Fluid is present behind the eardrum. documented in this encounter [facility] Evaluation note Note Date & Type Note Facility Evaluation note Diagnosis Dysfunction of left eustachian tube- Primary Obesity (BMI 30-39.9) Other migraine without status migrainosus, not intractable (CMS/[facility]) documented in this encounter [facility] Summary Purpose Family History No Family History Records FoundNo Family History Records FoundNo Family History Records Found Advance Directives No Advanced Directives Records FoundNo Advanced Directives Records FoundNo Advanced Directives Records Found Additional Source Comments (unrecognized sect ion and content) No Status Records FoundNo Status Records FoundNo Status Records Found INFORMATION SOURCE (unrecogn ized section and content) DATE CREATED AUTHOR 10/13/2021 [facility] DATE CREATED AUTHOR AUTHOR'S ORGANIZ ATION 02/07/2022 [facility] DATE CREATED AUTHOR AUTHOR'S ORGANIZ ATION 08/06/2024 [facility] EPIC Care Teams (unrecognized sec tion and content) [employer] Relationship Specialty Start Date End Date Aaron Christopher DO [address] [place] [address] PCP - [employer] 11/24/20 Aaron Christopher DO [address] [place] [address] PCP - General Family Medicine 01/29/23 [employer] Relationship Specialty Start Date End Date Aaron Christopher, DO [address] [place] [address] [facility] Aaron Christopher, DO [address] [place] [address] PCP - General Family Medicine 01/29/23 Reason for Visit (unrecogniz ed section and content) Reason Comments Tinnitus FOR RECORDS PERTAINING TO PATIENTS WHO ARE OR HAVE BEEN ENROLLED IN A CHEMICAL DEPENDENCY/SUBSTANCEABUSE PROGRAM, SOME INFORMATION MAY BE OMITTED. This clinical summary was aggregated from multiple sources. Caution should be exercised in using it in the provision of clinical care. This summary normalizes information from multiple sources, and as a consequence, information in this document may materially change the coding, format and clinical context of patient data. In addition, data may be omitted in some cases. CLINICAL DECISIONS SHOULD BE BASED ON THE PRIMARY CLINICAL RECORDS. [employer] provides no warranty or guarantee of the accuracy or completeness of information in this document.
[2024-08-28 17:22] LABS: Basophils Absolute Auto 0.1 10^3/uL (0.0-0.1); Basophils Percent Auto 0.9 % (0.2-2.0); Eosinophils Absolute Auto 0.1 10^3/uL (0.0-0.7); Eosinophils Percent Auto 1.2 % (0.9-7.0); Hematocrit 47.5 % (42.0-54.0); Hemoglobin 15.9 g/dL (14.0-18.0); Immature Granulocytes Abs Auto 0.02 10^3/uL (0.00-0.03); Immature Granulocytes Pct Auto 0.2 % (0.0-0.5); Lymphocytes Absolute Auto 1.6 10^3/uL (1.2-3.8); Lymphocytes Percent Auto 17.5 % (20.5-60.0); Mean Corpuscular HGB Conc 33.5 g/dL (29.9-35.2); Mean Corpuscular Hemoglobin 29.7 pg (25.9-34.0); Mean Corpuscular Volume 88.6 fL (80.0-94.0); Mean Platelet Volume 9.5 fL (9.5-13.5); Monocytes Absolute Auto 0.8 10^3/uL (0.3-0.8); Monocytes Percent Auto 8.7 % (1.7-12.0); Neutrophils Absolute Auto 6.6 10^3/uL (1.4-6.5); Neutrophils Percent Auto 71.5 % (43.0-75.0); Platelet Count 341 10^3/uL (150-450); Red Blood Count 5.36 10^6/uL (4.70-6.10); White Blood Count 9.3 10^3/uL (4.0-11.0)
[2024-08-28 17:24] LABS: PCO2 VBG 41.3 mmHg (40.0-52.0); pH VBG 7.419 (7.330-7.430)
[2024-08-28] MEDS: 0.9 % SODIUM CHLORIDE 1,000 ML 1000 ML IV (17:41)
[2024-08-28] MEDS: ONDANSETRON PF 4 MG/2 ML VIAL IV (17:41)
[2024-08-28 17:43] LABS: INR 1.05; Prothrombin Time 11.1 sec (9.0-11.6)
[2024-08-28 17:48] LABS: Creatine Kinase 96 U/L (39-308); Ethanol <3 mg/dL; Lactate/Lactic Acid 1.3 mmol/L (0.4-2.0); Salicylate <2.8 mg/dL (<=19.9); Troponin I High Sensitivity <4.0 pg/mL (4.0-76.1)
[2024-08-28 17:50] LABS: Acetaminophen <2.0 ug/mL (10.0-30.0)
[2024-08-28 17:55] LABS: Alanine Aminotransferase 54 U/L (16-63); Albumin Globulin Ratio 1.2; Albumin Level 4.3 g/dL (3.4-5.0); Alkaline Phosphatase 100 U/L (46-116); Anion Gap 14.2; Aspartate Amino Transferase 24 U/L (15-37); Bilirubin Total 0.8 mg/dL (0.2-1.0); Calcium 9.6 mg/dL (8.5-10.1); Carbon Dioxide 27.5 mmol/L (21.0-32.0); Chloride 102 mmol/L (98-107); Estimated GFR (African America >60 (>=60 mL/min/1.73m^2); Estimated GFR (Non-African Ame >60 (>=60 mL/min/1.73m^2); Globulin 3.5 g/dL; Glucose 103 mg/dL (74-106); Potassium 3.7 mmol/L (3.5-5.1); Sodium 140 mmol/L (136-145); Total Protein 7.8 g/dL (6.4-8.2)
[2024-08-28 18:24] LABS: Bilirubin Urine NEGATIVE (NEGATIVE); Blood Urine NEGATIVE (NEGATIVE); Clarity Urine CLEAR (CLEAR); Color Urine LT. YELLOW (YELLOW); Glucose Urine UA NEGATIVE (NEGATIVE); Ketones Urine NEGATIVE (NEGATIVE); Leukocyte Esterase Urine NEGATIVE (NEGATIVE); Nitrite Urine NEGATIVE (NEGATIVE); Protein Urine NEGATIVE (NEG/TRACE); Specific Gravity Urine 1.015 (1.005-1.025); Urobilinogen Urine 0.2 EU/dL (0.2-1.0); pH Urine 8.5 (5.0-9.0)
[2024-08-28 18:36] LABS: Amphetamine Screen Urine NEGATIVE (NEGATIVE); Barbiturates Screen Urine NEGATIVE (NEGATIVE); Benzodiazepines Screen Urine NEGATIVE (NEGATIVE); Buprenorphine Screen Urine NEGATIVE (NEGATIVE); Cannabinoid Screen Urine NEGATIVE (NEGATIVE); Cocaine Screen Urine NEGATIVE (NEGATIVE); Methadone Screen Urine NEGATIVE (NEGATIVE); Methamphetamines Screen Urine NEGATIVE (NEGATIVE); Opiate Screen Urine NEGATIVE (NEGATIVE); Oxycodone Screen Urine NEGATIVE (NEGATIVE); Phencyclidine Screen Urine NEGATIVE (NEGATIVE); Tricyclic Antidepressant Urine NEGATIVE (NEGATIVE)
[2024-08-28 18:40] LABS: Bacteria Urine NONE SEEN #/HPF (NONE SEEN); Cast Seen? NONE SEEN #/LPF (NONE SEEN); Crystals Seen? None Seen #/HPF (None Seen); Mucus Urine NONE SEEN (NONE SEEN); RBC Urine NONE SEEN #/HPF (0-2); Squamous Epithelial Cell Urine RARE #/LPF (NONE/RARE); WBC Urine NONE SEEN #/HPF (NONE SEEN)
--- NOTE | 2024-08-28 19:50 | ECG_ITS ---
[facility] Test Date: 2024-08-28 Pat Name: SARAH HINDS Department: Room: - Gender: Male [employer] Supervisor: : 1990 Requested By: [id number] Order Number: [id number] Reading MD: YURI HINDS Measurements Intervals [place] Rate: 118 P: 49 CA: 154 QRS: 48 QRSD: 82 T: 43 QT: 330 QTc: 400 Interpretive Statements 1120 Sinus tachycardia 9140 abnormal rhythm ECG Compared to ECG 08/28/2024 16:47:22 No significant changes Electronically Signed On 08-29-2024 8:35:55 EST by YURI HINDS
--- NOTE | 2024-08-28 20:00 | ED.PSYCH1 ---
HPI - Psych General Chief Complaint: Psychiatric Symptoms Stated Complaint: Suicidal Ideation Time Seen by Provider: 08/28/24 16:45 Source: Reports patient Mode of arrival: ambulance Limitations: Reports no limitations History of Present Illness HPI Narrative: 33-year-old male presented to the emergency department and was initially seen by Dr. Alegria and signed out to me after discussing the case with him thoroughly. Please see his full history and physical exam. Related Data Previous Rx's ?Medication ?Instructions ?Recorded hyoscyamine sulfate 0.125 mg 0.125 mg PO Q6H PRN abdominal pain 05/04/23 sublingual tablet (Levsin/SL) #20 tabs ondansetron 4 mg disintegrating 4 mg PO Q6H PRN nausea and 05/04/23 tablet vomiting #20 tabs dicyclomine 20 mg tablet 20 mg PO QID PRN abdominal pain 04/23/24 #10 tabs famotidine 20 mg tablet (Pepcid) 20 mg PO BID #20 tabs 04/23/24 Allergies Allergy/AdvReac Type Severity Reaction Status Date / Time amoxicillin Allergy Severe Anaphylaxis Verified 04/23/24 10:45 codeine Allergy Severe Anaphylaxis Verified 04/23/24 10:45 morphine Allergy Severe Anaphylaxis Verified 04/23/24 10:45 Penicillins Allergy Severe Anaphylaxis Verified 04/23/24 10:45 latex Allergy Hives Verified 04/23/24 10:45 PFSH PFSH Social History Smoking status: Never smoker Little interest or pleasure in doing things: more than half the days Feeling down, depressed, or hopeless: more than half the days Exam Constitutional Vital Signs, click to edit/add: Last Vital Signs Temp 97.6 F 08/28/24 16:53 Pulse 117 H 08/28/24 19:26 Resp 16 08/28/24 19:26 BP 121/80 08/28/24 19:26 Pulse Ox 99 08/28/24 19:26 O2 Del Method Room Air 08/28/24 19:26 Course Vital Signs Vital signs: Vital Signs Pulse Rate 135 H 08/28/24 16:47 Respiratory Rate 22 H 08/28/24 16:47 Pulse Oximetry 98 08/28/24 16:47 Temperature 97.6 F 08/28/24 16:53 Pulse Rate 117 H 08/28/24 19:26 Respiratory Rate 16 08/28/24 19:26 Blood Pressure 121/80 08/28/24 19:26 Pulse Oximetry 99 08/28/24 19:26 Oxygen Delivery Method Room Air 08/28/24 19:26 MDM - Psych MDM Narrative Medical decision making narrative: The patient has been observed here in the emergency department for an adequate amount of time. Poison control has been consulted. The patient remains awake and alert and will be transferred to [facility], [address]. He is stable and agreeable for transfer. Differential Diagnosis Differential diagnosis: Likely acute psychosis, suicidal ideation, depression and acute anxiety Lab Data Attestation: I reviewed the patient's lab results. Labs: Lab Results 08/28/24 08/28/24 Range/Units 17:18 17:30 WBC 9.3 (4.0-11.0) 10^3/uL RBC 5.36 (4.70-6.10) 10^6/uL Hgb 15.9 (14.0-18.0) g/dL Hct 47.5 (42.0-54.0) % MCV 88.6 (80.0-94.0) fL MCH 29.7 (25.9-34.0) pg MCHC 33.5 (29.9-35.2) g/dL RDW 13.0 (11.0-15.0) % Plt Count 341 (150-450) 10^3/uL MPV 9.5 (9.5-13.5) fL Neut % (Auto) 71.5 (43.0-75.0) % Lymph % (Auto) 17.5 L (20.5-60.0) % [place] % (Auto) 8.7 (1.7-12.0) % Eos % (Auto) 1.2 (0.9-7.0) % Baso % (Auto) 0.9 (0.2-2.0) % Neut # (Auto) 6.6 H (1.4-6.5) 10^3/uL Lymph # (Auto) 1.6 (1.2-3.8) 10^3/uL [place] # (Auto) 0.8 (0.3-0.8) 10^3/uL Eos # (Auto) 0.1 (0.0-0.7) 10^3/uL Baso # (Auto) 0.1 (0.0-0.1) 10^3/uL Abs Immat Gran (auto) 0.02 (0.00-0.03) 10^3/uL Imm/Tot Granulo (auto) 0.2 (0.0-0.5) % PT 11.1 (9.0-11.6) sec INR 1.05 VBG pH 7.419 (7.330-7.430) VBG pCO2 41.3 (40.0-52.0) mmHg Sodium 140 (136-145) mmol/L Potassium 3.7 (3.5-5.1) mmol/L Chloride 102 (98-107) mmol/L Carbon Dioxide 27.5 (21.0-32.0) mmol/L Anion Gap 14.2 BUN 6.0 L (7.0-18.0) mg/dL Creatinine 1.19 (0.70-1.30) mg/dL Est GFR ( Amer) >60 (>=60 mL/min/1.73m^2) Est GFR (Non-Af Amer) >60 (>=60 mL/min/1.73m^2) BUN/Creatinine Ratio 5.0 Glucose 103 (74-106) mg/dL Lactate 1.3 (0.4-2.0) mmol/L Calcium 9.6 (8.5-10.1) mg/dL Total Bilirubin 0.8 (0.2-1.0) mg/dL AST 24 (15-37) U/L ALT 54 (16-63) U/L Alkaline Phosphatase 100 (46-116) U/L Total Creatine Kinase 96 (39-308) U/L Troponin I High Sens <4.0 L (4.0-76.1) pg/mL Total Protein 7.8 (6.4-8.2) g/dL Albumin 4.3 (3.4-5.0) g/dL Globulin 3.5 g/dL Albumin/Globulin Ratio 1.2 Urine Color Lt. yellow (YELLOW) Urine Clarity Clear (CLEAR) Urine pH 8.5 (5.0-9.0) Ur Specific [place] 1.015 (1.005-1.025) Urine Protein Negative (NEG/TRACE) mg/dL Urine Glucose (UA) Negative (NEGATIVE) mg/dL Urine Ketones Negative (NEGATIVE) mg/dL Urine Occult Blood Negative (NEGATIVE) Urine Nitrite Negative (NEGATIVE) Urine Bilirubin Negative (NEGATIVE) Urine Urobilinogen 0.2 (0.2-1.0) EU/dL Ur Leukocyte Esterase Negative (NEGATIVE) Urine RBC None seen (0-2) #/HPF Urine WBC None seen (NONE SEEN) #/HPF Ur Squamous Epith Cells Rare (NONE/RARE) #/LPF Urine Crystals None seen (None Seen) #/HPF Urine Bacteria None seen (NONE SEEN) #/HPF Urine Casts None seen (NONE SEEN) #/LPF Urine Mucus None seen (NONE SEEN) Salicylates <2.8 (<=19.9) mg/dL Urine Opiates Screen Negative (NEGATIVE) Ur Buprenorphine Scrn Negative (NEGATIVE) Ur Oxycodone Screen Negative (NEGATIVE) Urine Methadone Screen Negative (NEGATIVE) Acetaminophen <2.0 L (10.0-30.0) ug/mL Ur Barbiturates Screen Negative (NEGATIVE) U Tricyclic Antidepress Negative (NEGATIVE) Ur Phencyclidine Scrn Negative (NEGATIVE) Ur Amphetamines Screen Negative (NEGATIVE) U Methamphetamines Scrn Negative (NEGATIVE) U Benzodiazepines Scrn Negative (NEGATIVE) Urine Cocaine Screen Negative (NEGATIVE) U Cannabinoids Screen Negative (NEGATIVE) Ethanol Quant <3 mg/dL ECG Data Attestation: I personally reviewed and interpreted this ECG as follows: (EKG timed at 7:51 PM on my interpretation shows sinus tachycardia with a rate of 118.) Discharge Plan Discharge Chief Complaint: Psychiatric Symptoms Clinical Impression: Suicide attempt, Intentional overdose, Situational anxiety Patient Disposition: [facility] Time of Disposition Decision: 21:30 Condition: Serious
== END 2024-08-28 21:10 ==
PROVIDERS: Emergency Medicine; Emergency Provider Emergency Medicine; PCP Family Medicine
DX: T45.0X2A Poisoning by antiallergic and antiemetic drugs, intentional self-harm, initial encounter (principal); F41.8 Other specified anxiety disorders
CPT/HCPCS: 36415; 80053; 80179; 80307; 80320; 80329; 81001; 82550; 82800; 83605; 84484; 85025; 85610; 93005; 96374; 99285; J2405